=== PATIENT | male | born 1955 | race Caucasian/White ===

== ENCOUNTER 2025-01-04 15:19 | Inpatient (IN) | payer BC, SELFPAY ==
[2025-01-04] VITALS (10 sets, daily range): BP systolic 110–141; BP diastolic 62–90; BMI 28.8; BMI 28.4
[2025-01-04 13:02] LABS: % Basophils 0.7 % (0-2); % Eosinophils 0.5 % (0-6); % Immature Granulocytes 0.3 % (0-0.5); % Lymphocytes 29.2 % (20.5-51.1); % Monocytes 8.1 % (1.7-9.3); % Neutrophils 61.2 % (42.2-75.2); Absolute Basophils 0.1 10^3/uL (0-0.2); Absolute Lymphocytes 2.5 10^3/uL (1.2-3.4); Absolute Monocytes 0.7 10^3/uL (0.1-0.6); Absolute Neutrophils 5.3 10^3/uL (1.4-6.5); Hematocrit 45.2 % (39.0-52.0); Hemoglobin 16.3 g/dL (13.0-18.0); Mean Corp Hgb Conc. 36.1 g/dL (33.0-37.0); Mean Corpuscular Volume 88.8 fL (80.0-94.0); Mean Platelet Volume 10.8 fL (7.4-10.4); Nucleated Red Blood Cells % 0 % (-); Platelet Count 199 10^3/uL (130-400); Red Blood Cell Count 5.09 10^6/uL (4.70-6.10); Red Cell Dist. Width 12.6 % (11.5-14.5); White Blood Cell Count 8.6 10^3/uL (4.8-10.8)
[2025-01-04 13:15] LABS: ALT (SGPT) 29 U/L (0-50); AST (SGOT) 50 U/L (17-59); Albumin 5.3 g/dl (3.5-5.0); Alkaline Phosphatase 42 U/L (38-126); Blood Urea Nitrogen 14 mg/dl (9-20); Carbon Dioxide 28 mmol/L (22-30); Chloride 103 mmol/L (98-107); Glucose 113 mg/dl (70-99); Potassium 5.2 mmol/L (3.5-5.1); Sodium 142 mmol/L (135-145); Total Bilirubin 1.8 mg/dl (0.2-1.3); eGFR > 60.00
--- NOTE | 2025-01-04 13:44 | ED.GENMED ---
History of Present Illness
General
Chief Complaint: Chest Pain
Source: patient
Exam Limitations: none
Time Seen by Provider: 01/04/25 13:09
Nursing documentation reviewed up to this point in time: agreed with
History of Present Illness
History of Present Illness:
Patient is a 6-year-old male with past medical history of cardiac stent who presents to the ER for evaluation of chest pain. Patient reports he has had intermittent episodes of chest pain which have lasted for about 5 minutes at a time. He reports
chest pain is usually across anterior upper chest and last for 5 minutes at a time. With his episodes of chest pain he has had no associated shortness of breath, radiation, nausea or vomiting. Symptoms occur either with rest or with exertion. He
reports his last episode chest pain was last night while sitting in a meeting approximate 10 PM. It lasted about 5-10 minutes. He has not had pain since. Patient presents asymptomatic. He did take his 1 baby aspirin today.
Patient is followed by Dr. AISHWARYA Davey
Review of Systems
Review of Systems
Allergies reviewed?: Yes
All Other Systems: ROS reviewed and negative except as documented in HPI and ROS
Constitutional: Reports no symptoms
Respiratory: Reports no symptoms
Cardiac: Reports chest pain; Denies diaphoresis, palpitations or syncope
ABD/GI: Reports no symptoms
: Reports no symptoms
Musculoskeletal: Reports no symptoms
Skin: Reports no symptoms
Neurological: Reports no symptoms
Psychiatric: Reports no symptoms
Phy Exam
General Physical Exam
General Presentation: no apparent distress
General age: appears stated age
General Skin: warm and dry
General Habitus: normal
General Mental: alert
General Hydration: appears well hydrated
Cardiovascular Exam
Cardiovascular Exam: regular rate/rhythm, no murmur and normal peripheral pulses
Pulmonary Exam
Pulmonary Exam: lungs clear and no respiratory distress
Neurological Exam
Neurological Exam: alert and oriented x3
Musculoskeletal Exam
Musculoskeletal Exam: full ROM
Skin Exam
Skin Exam: normal color and warm/dry
Psychiatric Exam
Psychiatric Exam: normal mood/affect
Scores
Heart Score for Chest Pain Patients
STEMI patient?: Not applicable
Course
Orders/Labs/Results
Orders:
Orders
01/04/25 12:33
EKG [Electrocardiogram (*1)] Urgent
Reason for Study: Chest Pain
01/04/25 12:34
EKG- Treatment ONCE
01/04/25 12:48
Complete Blood Count/With Diff Urgent
Comprehensive Metabolic Panel Urgent
Troponin I Urgent
01/04/25 13:44
Aspirin Chewable [Low Strength Aspirin] 243 mg PO NOW STA
01/04/25 13:49
Heparin 4,000 units IV NOW STA
Nursing to Place Non Medication Order As Directed
Physician Order: PTT 6 hours after initial start of Heparin infusion
Above order entered?: Yes
01/04/25 13:57
PTT Urgent
Comment: Obtain baseline before beginning heparin infusion if not already collected
01/04/25 14:00
Heparin 38394 Units/250 ml 25,000 units in 250 ml IV PER PROTOCOL
Weight to be used for heparin protocol in kilograms (kg):: 91.2
Protocol:: Cardiac Tx/Acute Coronary
PTT Goal Range to be used:: PTT 73 to 111 seconds
Order type:: Initial
INITIAL Infusion Dose (UNITS/KG/hr) & then follow protocol:: 12 units/kg/hr
Infusion Dose in UNITS/hr & then follow protocol (UNITS/hr):: 1,000
INFUSION RATE in mL/hr & then follow protocol (mL/hr):: 10
PTT less than or equal to 64 seconds:: Increase rate by 200 units/hr (+ 2 mL/hr)
PTT 64.1 to 72.9 seconds:: Increase rate by 100 units/hr (+ 1 mL/hr)
PTT 73 to 111 seconds:: Target Range. No change in rate.
PTT 111.1 to 130.9 seconds:: Decrease rate by 100 units/hr (- 1 mL/hr)
PTT 131 to 199.9 seconds:: HOLD for 1 hr. Then decrease rate by 200 units/hr (- 2 mL/hr)
PTT greater than or equal to 200 seconds:: HOLD for 2 hrs & Notify Provider. Then decrease by 200 units/hr (-
2 mL/hr)
Lab follow-up:: Each change, PTT q6h until 2 consecutive are therapeutic. Then PTT
daily.
01/04/25 15:07
Admit/Transfer Patient As Directed
Co-Sign Provider:
Level of Care: Inpatient admission
Assign to:: IVU
Physician / Group: Elva
Diagnosis: NSTEMI
Reason for Hospitalization: NSTEMI, IV heparin, cardiac cath
Expected length of stay greater than two midnights?: Yes
ELOS- Estimated Length of Stay in days: 3
I certify the patient meets the requirements for IP care: Yes
PRN Pain Medication Management As Directed
May give lesser potent ordered pain med per pt: Yes
preference::
Protocol:: Medication orders for pain may be administered in a
manner that supports deferring to patient preference
when the pt is:
- Requesting an ordered lesser potent pain medication.
Least to most potent pain medications are defined
as: acetaminophen < NSAID < tramadol < opioids
(morphine, oxycodone, hydromorphone).
- Requesting a lesser dose of the same medication IF
ORDERED.
- Requesting a less intrusive route of administration
if both routes are prescribed by the provider (PO <
IV).
01/04/25 15:09
Code Status As Directed
Resuscitation Status: Full Code
01/04/25 20:09
PTT Urgent
Abnormal Lab Results
01/04/25
12:48
MCH 32.0 H pg
(27.0-31.0)
MPV 10.8 H fL
(7.4-10.4)
Absolute Monos (auto) 0.7 H 10^3/uL
(0.1-0.6)
Potassium 5.2 H mmol/L
(3.5-5.1)
Glucose 113 H mg/dl
(70-99)
Total Bilirubin 1.8 H mg/dl
(0.2-1.3)
Troponin I 4.210 H* ng/ml
Albumin 5.3 H g/dl
(3.5-5.0)
01/04/25 12:48
01/04/25 12:48
Vital Signs
Initial and Last Documented VS:
Initial Vital Signs
Pulse Resp Pulse Ox
87 16 98
01/04/25 12:35 01/04/25 12:35 01/04/25 12:35
Last Documented Vital Signs
Temp Pulse Resp BP Pulse Ox
98.8 F 69 20 124/80 95
01/04/25 12:39 01/04/25 15:45 01/04/25 15:45 01/04/25 15:00 01/04/25 15:45
Face Man consulted with Physician
Face Man consulted with physician?: Yes
Name of Physician Consulted: Jesus
MDM/Problems Addressed
Differential Diagnosis Includes:
Not limited to ACS
MDM/Problems Addressed:
As documented patient is a 69-year-old male who presented with intermittent episodes of chest pain for the past week.. Patient's last episode of chest pain was last evening. He has been asymptomatic here in the ER. No acute findings on EKG
cardiac troponin however elevated at 4.210. Pt took one baby ASA this am.
Patient was additional 3 aspirin and placed on heparin. Case reviewed with ED physician. Case discussed with cardiology, Dr. Marquez. Cardiology evaluated pt and pt to be admittted to cardiology. plan for cardiac cath in am. Patient has
remained asymptomatic and stable in the ER.
*Critical Care Note
Total Time (30-74mins, 75-104mins- exclusive of procedures): Not Applicable
ED Attending Note
-
Portions of this chart may have been created with voice recognition software.� Occasional wrong word or��sound alike� substitutions may have occurred due to the inherent limitations of voice recognition software.
Discharge Plan
Departure
Patient Disposition: Admit
Admit to: Telemetry
Admit to doctor: Alma
Presentation/result/management discussed w/ accepting MD/DO: cardiology
Patient with high blood pressure during this ER visit?: Yes
Covid-19: Not Applicable
Discharge Problem:
Acute non-ST elevation myocardial infarction (NSTEMI)
Interventions
Interventions:
*Risk Screen - Suicide Last Done: 01/04/25 13:51
*General Assessment Last Done: 01/04/25 13:51
*Neglect/Abuse Screening Last Done: 01/04/25 13:51
*ED- Fall Risk Assessment Last Done: 01/04/25 13:51
*ED COVID-19 Vaccine History Last Done: 01/04/25 13:51
ED- Cardiac Assessment Last Done: 01/04/25 13:51
[2025-01-04] MEDS: LOW STRENGTH ASPIRIN 243 MG PO (13:59)
[2025-01-04] MEDS: HEPARIN 4000 UNITS IV (14:07)
[2025-01-04] MEDS: HEPARIN 25000 UNITS/250 ML IV (14:09)
[2025-01-04 14:28] LABS: APTT 33.1 Sec (23.4-35.0)
--- NOTE | 2025-01-04 14:50 | CON.CAR ---
Addendum entered and electronically signed by Mp Stevenson MD 01/04/25 15:52:
I saw and examined the patient.
The Civil Preparedness Officer's note was reviewed and I agree with the note.
Comment: Briefly, 69-year-old man past medical history of CAD with prior drug-eluting stent in the left circumflex who presents for evaluation after approximately 10 days of intermittent chest tightness. ECG here showed sinus rhythm with
nonspecific ST changes. Initial troponin was found to be elevated at 4.2 consistent with NSTEMI.
Patient was chest pain-free at the time of my evaluation
No evidence of decompensated heart failure based on physical exam
Agree with aspirin, high intensity statin and heparin drip x 48 hours
Start low-dose metoprolol
If he develops recurrent chest discomfort would start nitro drip
Trend troponin to peak
Check echo
N.p.o. at midnight for left heart catheterization tomorrow
Case discussed with interventional cardiology
Original Note:
Consultation
Consultation Request
Date/Time Consultation Performed: 01/04/25
Requesting Provider: Minna Chung PA-C
Performing Provider: Jessica Cruz PA-C for Dr. Stevenson
Reason for Consultation: CP
Medical History
-
Chief Complaint: CP
History of Present Illness:
Patient is a 69-year-old male with past medical history of CAD status post mid circumflex SETH 09/2017, hypertension, hyperlipidemia who presents to [facility] due to chest pain. 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 He reports he noted some upper chest tightness at that time. He reports since then he has noticed several episodes of recurrent upper chest tightness, 1 of which with walking his dog, but several wall resting. He reports
the last episode was last evening around 10 PM while he was at a [facility] meeting which he does state was stressful. Due to recurrence of symptoms his urged him to come in for evaluation. In the setting of his prior stent, he did not have any
symptoms by his report. He does not have any present discomfort. Troponin 4.2 resulting in cardiology consultation. He is on aspirin 81 mg daily and has been compliant with this.
PMH:
CAD s/p mid circ SETH 09/2017
HTN
HLD
Back pain
Past Medical History
Past Medical History: Other (in HPI)
Social History
Tobacco: Non-Smoker
Alcohol: None
Personal:
Living: With Family
Family History
Family History: Adopted
Allergies / Home Medications
Allergy/AdvReac Type Severity Reaction Status Date / Time
No Known Allergies Allergy Verified 01/04/25 13:56
�Medication �Instructions �Recorded �Confirmed �Type
aspirin 81 mg tablet,delayed 81 mg PO DAILY 01/04/25 01/04/25 History
release
losartan 25 mg tablet 25 mg PO DAILY 01/04/25 01/04/25 History
rosuvastatin 40 mg tablet (Crestor) 40 mg PO DAILY 01/04/25 01/04/25 History
saw palmetto 160 mg capsule 160 mg PO DAILY 01/04/25 01/04/25 History
therapeutic multivitamin 1 tab PO DAILY 01/04/25 01/04/25 History
Review of Systems
-
History Source: Patient
All other systems: Negative unless noted
Physical Exam
Vital Signs
Temp Pulse Resp BP Pulse Ox
98.8 F 87 16 141/90 98
01/04/25 12:39 01/04/25 12:35 01/04/25 12:35 01/04/25 12:39 01/04/25 13:51
Lab Results
01/04/25 12:48
01/04/25 12:48
Troponin I 4.210 ng/ml H* 01/04/25 12:48
Physical Exam
General: No Apparent Distress and Comfortable
HEENT: Normocephalic, Anicteric and Moist Mucous Membranes
Respiratory: Clear and Non Labored Respirations
Cardiac: S1/S2, Regular Rhythm and Murmur
GI: Soft, Non Tender, Non Distended and Normal Bowel Sounds
Musculoskeletal: No Clubbing, No Cyanosis and No Edema
Skin: Warm and Dry
Neuro: AO x 3
Impression / Plan
-
Primary Ship Scraper: Dr. AISHWARYA Davey
Assessment:
Presentation with CP
NSTEMI
CAD s/p mid circ SETH 09/2017
HTN
HLD
Back pain
ECHO 2017: normal
Stress echo 11/2017: Negative for ischemia with normal EF, suboptimal evaluation, inferior segment/translational motion with no clear stress-induced ischemia
Plan:
- Patient with history of CAD with prior circumflex stent in 2018 presents with chest tightness, intermittent since last Thursday12/26/24.
- Trop on arrival 4.2, trend to peak. Chest pain-free. EKG sinus rhythm with septal ST depressions noted
- Continue IV heparin started in ER
- Continue aspirin 81mg daily. 324mg total given in ER
- Continue outpatient Crestor. Check CVE
- Check echo
- N.p.o. after midnight for cardiac catheterization in a.m. discussed cath procedure with patient.
- Blood pressures stable. Continue outpatient losartan. Will add Toprol 25 mg daily
- Further recommendations pending results of testing
Data Reviewed
-
EKG: Tracing Personally Visualized and interpreted
Medical Tests (Nuc Med, Echo etc): Report Reviewed by me
Labs: Labs Reviewed by me
Old Records: Reviewed
[2025-01-04 21:26] LABS: APTT 49.7 Sec (23.4-35.0)
[2025-01-04] MEDS: TOPROL XL 25 MG PO (22:39)
[2025-01-05] VITALS (15 sets, daily range): BP systolic 100–122; BP diastolic 60–79; BMI 28.4
--- NOTE | 2025-01-05 00:33 | PTCARENOTE ---
Rec'd pt as admission from ED. Pt AAO*3, VSS, and SR on TELE monitor. Pt denies any active CP or discomfort. Heparin infusing as ordered. Pt given education on EKG and troponin monitoring and verbalizes understanding. Pt NPO at midnight for
possible procedure in AM. PT now resting with call funk in reach and plan of care ongoing. See MAR and flowchart for full pt care and assessment.
[2025-01-05 04:18] LABS: Hemoglobin 14.8 g/dL (13.0-18.0); Mean Corp Hgb Conc. 36.1 g/dL (33.0-37.0); Mean Corpuscular Volume 88.7 fL (80.0-94.0); Mean Platelet Volume 11.1 fL (7.4-10.4); Platelet Count 178 10^3/uL (130-400); Red Blood Cell Count 4.62 10^6/uL (4.70-6.10); Red Cell Dist. Width 12.5 % (11.5-14.5); White Blood Cell Count 8.6 10^3/uL (4.8-10.8)
[2025-01-05 04:35] LABS: APTT 70.4 Sec (23.4-35.0)
[2025-01-05 04:44] LABS: Blood Urea Nitrogen 17 mg/dl (9-20); Calcium 9.1 mg/dl (8.4-10.2); Carbon Dioxide 22 mmol/L (22-30); Chloride 105 mmol/L (98-107); Estimated Creatinine Clearance 101 ml/min; Glucose 103 mg/dl (70-99); HDL Cholesterol 42 mg/dl; LDL Cholesterol, Calculated 54 mg/dl; Potassium 4.1 mmol/L (3.5-5.1); Sodium 140 mmol/L (135-145); Total Cholesterol 118 mg/dl (50-199); Triglyceride 113 mg/dl (10-149); Very Low Density Lipoprotein 22 mg/dl (0-30); eGFR > 60.00
[2025-01-05] MEDS: ASPIR LOW (ENTERIC COATED) 81 MG PO (07:00)
[2025-01-05] MEDS: TOPROL XL 25 MG PO (07:01)
[2025-01-05] MEDS: COZAAR 25 MG PO (07:01)
[2025-01-05] MEDS: THERAGRAN 1 TABLET PO (07:01)
[2025-01-05] MEDS: CRESTOR 40 MG PO (07:06)
--- NOTE | 2025-01-05 07:51 | ITS.CL.CATH ---
Fitness And Wellness Director - Catheterization
Cardiac Catheterization
Procedure Report:
LEFT HEART CATHETERIZATION
Date of Procedure: January 05, 2025
Referring: Mp Stevenson MD, PhD
PROCEDURES:
1. Left heart catheterization, coronary angiogram.
2. Moderate sedation.
3. Functional physiologic testing of mid LAD
INDICATION: Patient is a 69-year-old gentleman with past medical history of hypertension, hyperlipidemia, nondiabetic, coronary artery disease with prior left circumflex stent who presents this admission with NSTEMI, peak troponin of 4.
Echocardiogram is pending. He is now referred for left heart catheterization to rule out obstructive CAD.
ACCESS: Right radial artery, 6Fr sheath, under US guidance
HEMODYNAMICS : (mmHg)
AO (s/d) : 92/57
LVEDP : 6
No significant gradient across the aortic valve to suggest aortic stenosis.
CORONARY FINDINGS
Dominance: Right
Left Main Trunk (LMT):� Large caliber vessel that gives rise to the LAD and LCx branches and is free of angiographic disease.
Left Anterior Descending Artery (LAD):� Large caliber vessel that gives off 2 major diagonal branches as it courses along the anterior inter-ventricular groove before wrapping around the cardiac apex. Mid LAD has a heavily calcified 70% stenosis
which is IFR positive as noted below at 0.87.
Left Circumflex Artery (LCx):� Large caliber vessel that gives off 2 major obtuse marginal (OM) branches as it courses along the atrio-ventricular (AV) groove.� There is a hazy, irregular 90 to 95% proximal left circumflex stenosis which is likely
culprit of presenting NSTEMI. Previously placed distal left circumflex/OM 2 stent is widely patent. Mid left circumflex at the level of OM1 takeoff has a smooth 40 to 50% stenosis. OM1 and OM 2 appear to be good bypass targets.
Right Coronary Artery (RCA):� Large caliber dominant vessel that gives rise to the posterior descending artery (RPDA) and very small postero-lateral ventricular (RPLV) branches distally.� It is moderately calcified with a 60 to 70% stenosis in the
proximal portion with diffuse atherosclerotic plaque in the mid RCA up to 75%.
HEMODYNAMIC ASSESSMENT OF THE MID LAD WITH A VOLCANO OMNI WIRE: The origin of the left coronary artery was cannulated with a 6 Fr EBU 3.75 guide catheter. Intravenous heparin was administered and the ACT was followed during the procedure. Two
hundred micrograms of intracoronary nitroglycerin was given through the guide catheter. A [place] Omni wire was advanced to the guide catheter tip and normalized just outside the guide catheter. The Omni wire was then carefully manipulated across
the stenosis in the mid LAD with the iFR below the ischemic threshold serially measuring 0.87, 0.88, 0.88. The Omni wire was then pulled back to the guide catheter where the Pd/Pa measured 1.0 confirming no baseline drift in pressure readings
SEDATION: 47 minutes of procedural sedation was utilized. IV Midazolam and IV Fentanyl were administered. An independent biomedical specialist was present to assist with and help manage the patient's level of consciousness and physiologic status.
RADIATION SUMMARY: Fluoro Time (min): 5.6, Dose (mGy): 438.9, DAP (Gy.cm2) : 27.0
Closure Device: There were no immediate intra-procedural complications.� The sheath was pulled in the director of labor and delivery and a vascular-band applied to the right wrist for radial artery hemostasis using the patent hemostasis technique.�
CONCLUSIONS
1. Multivessel coronary artery disease with moderately calcified coronary arteries.
2. Low to normal LVEDP at 6 mmHg.
RECOMMENDATIONS
1. Wean radial band per protocol. Monitor right hand perfusion and for bleeding from the radial site following removal of the vascular-band following trans-radial access.
2. Continue aggressive medical therapy and risk factor modification for secondary CAD prevention.
3. Continue ASA 81 mg daily for life.
4. Consult CT surgery for consideration of coronary artery bypass grafting with bypass grafts to LAD +/- D1, OM1/OM 2, RPDA
5. Hydrate with normal saline to mitigate the risk of contrast-induced acute kidney injury.
6. Eventual follow-up with Dr. Michael Davey.
7. Eventual referral for outpatient cardiac rehab.
Copy to: Mp Stevenson MD, PhD, Michael Davey MD
Maggi June MD, [facility], [facility]
[2025-01-05] MEDS: NSS 1000 IV (09:30)
--- NOTE | 2025-01-05 11:15 | PTCARENOTE ---
Pt received this am with no c/o of chest pain or sob. Pt sent to the animal laboratory helper and returned at 0900. Right radial band intact and WNL. Room air, sat 99%.
--- NOTE | 2025-01-05 12:46 | CONSULT.CT ---
Consultation
-
Date/Time Consultation Requested: 01/05/25
Date/Time Consultation Performed: 01/05/25
Requesting Provider: Fredy June
Performing Provider: Adenike JOHNSON for Abelardo Hernandez MD
Reason for Consultation: CABG evaluation
Patient History
Physicians
Family Physician: Kyle Rodriguez
Outpatient Public Health Microbiologist: AISHWARYA Davey
Inpatient Public Health Microbiologist: [facility]
History of Present Illness
69-year-old [id number], male, followed by Dr. Cornelio Davey for known coronary artery disease and prior stent to LCx in 2017, began experiencing upper chest tightness 10 days ago (12/26) that resolved spontaneously. Similar symptoms
recurred again several days later and again on 01/04/2025, prompting patient to seek treatment at [facility] emergency room. ECG with nonspecific ST changes. Initial troponin elevated at 4.2, consistent with NSTEMI. Patient underwent left heart
catheterization today which revealed triple-vessel coronary disease.
Pertinent negatives: Denies CVA/TIA, DM, asthma/COPD, dysphagia, GERD, DVT/PE, chest radiation, vein stripping
Past Medical History
Past Medical History: CAD, HTN, Hypercholesterolemia and Other (Left hand cellulitis)
Past Surgical History
Past Surgical History: PCI/Stent (SETH-LCx 2017) and Other (Left hand surgery for abscess)
Social History
Alcohol: Occasional (2/month)
Drug: None
Tobacco: Non-Smoker
Personal:
Living: With Spouse
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
Allergies
Allergy/AdvReac Type Severity Reaction Status Date / Time
No Known Allergies Allergy Verified 01/04/25 13:56
Home Medications
�Medication �Instructions �Recorded �Confirmed �Type
aspirin 81 mg tablet,delayed 81 mg PO DAILY Blood Clot 01/04/25 01/04/25 History
release Prevention/Tx
losartan 25 mg tablet 25 mg PO DAILY Blood Pressure 01/04/25 01/04/25 History
rosuvastatin 40 mg tablet (Crestor) 40 mg PO DAILY High Cholesterol 01/04/25 01/04/25 History
saw palmetto 160 mg capsule 160 mg PO DAILY 01/04/25 01/04/25 History
therapeutic multivitamin 1 tab PO DAILY Supplement 01/04/25 01/04/25 History
Review of Systems
-
History Source: Patient
General: Reports No Symptoms
HEENT: Reports No Symptoms
Respiratory: Reports No Symptoms
Cardiac: Reports Chest Pain (upper chest tightness resolved on admission)
Abdomen/GI: Reports No Symptoms
: Reports No Symptoms
Musculoskeletal: Reports No Symptoms
Skin: Reports No Symptoms
Neurological: Reports No Symptoms
Vascular: Reports No Symptoms
Physical Exam
Vital Signs
Temp 98.1 F 01/05/25 11:38
Temp route: Oral 01/05/25 11:38
Pulse 73 01/05/25 11:00
Rhythm: Normal sinus rhythm 01/05/25 08:00
Resp Rate 14 01/05/25 11:38
Blood pressure 121/79 01/05/25 11:00
Blood pressure extremity used: Left upper arm 01/05/25 08:55
Position: Lying 01/05/25 08:55
MAP (cuff-Giulia Monitor) 92 01/05/25 11:00
SaO2 95 01/05/25 11:38
Oxygen Mode of Delivery Room air 01/05/25 11:38
Can the patient verbally communicate their pain? Yes 01/05/25 08:00
Actual Weight 89.7 kg 01/05/25 06:00
Body Mass Index (BMI) 28.4 01/05/25 06:00
Labs
01/05/25 03:17
01/05/25 03:17
APTT 70.4 Sec (23.4-35.0) H 01/05/25 03:17
Hemoglobin A1c Cancelled 01/04/25 20:47
Troponin I 3.900 ng/ml H* 01/05/25 03:17
Diagnostic Studies
Left heart Catheterization 01/05/25:
Left Main Trunk:� ok
Left Anterior Descending Artery (LAD):� Mid LAD has a heavily calcified 70% stenosis which is IFR positive as noted below at 0.87.
Left Circumflex Artery (LCx):� Hazy, irregular 90-95% proximal left circumflex stenosis which is likely culprit of presenting NSTEMI. Previously placed distal left circumflex/OM 2 stent is widely patent. Mid left circumflex at the level of OM1
takeoff has a smooth 40-50% stenosis.
Right Coronary Artery (RCA):� Moderately calcified 60-70% stenosis in the proximal portion with diffuse atherosclerotic plaque in the mid RCA up to 75%.
Exam
General: Well Developed, Well Nourished and No Apparent Distress
HEENT: Normocephalic, Anicteric and PERRLA
Neck: Trachea Midline
Respiratory: Clear
Cardiac: S1/S2 and Regular Rhythm
GI: Soft, Non Tender, Non Distended and Normal Bowel Sounds
Rectal: Deferred by Provider
Skin: Warm and Dry
Neuro: AO x 3, No Motor Deficits and Nonfocal/Grossly Intact
Extremities: Pulses (+2/4 DP pulses)
Lymph: No Lymphadenopathy
Psych: Calm
Assessment / Plan
-
69-year-old male admitted with NSTEMI and found to have triple-vessel coronary disease on cath 01/05/25
- troponin trend 4.21>4.020>4.310>3.9
- Surgeon to review imaging discussed risk/benefit of CABG with patient and family
- Preop diagnostics ordered
- Continue IV heparin
- Need to DC Cozaar 2 days prior to surgery if deemed a surgical candidate
Data Reviewed
-
EKG: Report Reviewed by me and Discussed with Physician
Operating Cost Clerk: Report Reviewed by me and Discussed with Physician
Radiology: Report Reviewed by me and Discussed with Physician
Labs: Labs Reviewed by me and Discussed with Physician
Old Records: Reviewed
--- NOTE | 2025-01-05 12:49 | CM ---
Chart reviewed. Patient is independent of ADLS, lives with his in a 2 [address], 1 [employer], 0 DME. Plan is for the patient to return home. CM to follow
[2025-01-05] MEDS: HEPARIN 25000 UNITS/250 ML IV ×2 (15:47→18:57)
[2025-01-05 16:37] LABS: APTT 37.6 Sec (23.4-35.0)
--- NOTE | 2025-01-05 21:10 | PTCARENOTE ---
Assumed care of pt at 1900. Pt is A/O x4, pleasant and cooperative with care. No c/o pain. Ambulates independently around room. Received pt on heparin drip at 1000 units/hr, next PTT at 2145. R radial dressing is C/D/I, 2+ right radial pulse, see
post cath flowsheet for further details. Physical assessment as documented in nursing shift assessment flowsheet. SR on monitor. Call funk and personal items within reach.
[2025-01-05 22:07] LABS: APTT 52.8 Sec (23.4-35.0)
[2025-01-06 03:41] VITALS: BP 112/78
[2025-01-06 05:36] LABS: Hematocrit 40.2 % (39.0-52.0); Hemoglobin 14.5 g/dL (13.0-18.0); Mean Corp Hgb Conc. 36.1 g/dL (33.0-37.0); Mean Corpuscular Volume 88.7 fL (80.0-94.0); Mean Platelet Volume 11.1 fL (7.4-10.4); Platelet Count 167 10^3/uL (130-400); Red Blood Cell Count 4.53 10^6/uL (4.70-6.10); Red Cell Dist. Width 12.7 % (11.5-14.5); White Blood Cell Count 7.9 10^3/uL (4.8-10.8)
[2025-01-06 05:44] LABS: APTT 81.4 Sec (23.4-35.0)
[2025-01-06 06:03] LABS: B.E. 2.3 mmol/L; HCO3 26.5 mmol/L (21-28); O2 Saturation % 96.2 % (94-98); PCO2 39 mmHg (35-48); PO2 71 mmHg (83-108); pH 7.44 (7.35-7.45)
[2025-01-06 06:23] LABS: Blood Urea Nitrogen 14 mg/dl (9-20); Calcium 9.1 mg/dl (8.4-10.2); Carbon Dioxide 24 mmol/L (22-30); Chloride 107 mmol/L (98-107); Estimated Creatinine Clearance 89 ml/min; Glucose 109 mg/dl (70-99); Potassium 4.5 mmol/L (3.5-5.1); Sodium 141 mmol/L (135-145); eGFR > 60.00
[2025-01-06 08:06] VITALS: BP 108/69
[2025-01-06] MEDS: COZAAR 25 MG PO (09:24)
[2025-01-06] MEDS: CRESTOR 40 MG PO (09:24)
[2025-01-06] MEDS: THERAGRAN 1 TABLET PO (09:24)
[2025-01-06] MEDS: TOPROL XL 25 MG PO (09:24)
[2025-01-06] MEDS: ASPIR LOW (ENTERIC COATED) 81 MG PO (09:24)
--- NOTE | 2025-01-06 09:36 | W.PN.CARDCBS ---
Addendum entered and electronically signed by Lesley Morin DO 01/06/25 10:07:
I saw and examined the patient.
The Director Wholesale's note was reviewed and I agree with the note.
Comment: patient was seen and examined. at bedside. Fortunately no further chest pain or pressure. No shortness of breath. Overnight without events.
GEN: No distress, awake, alert, oriented x3
HEENT: mmm
LUNGS: CTA bilaterally, no wheezes/rales
CV: Reg, S1/S2, no murmur
ABD: soft, BS+, NT/ND
EXT: no edema. radial site intact
NEURO: Gross non-focal
Plan:
Non-STEMI with chest pain status post cardiac catheterization 01/05/2025 with multivessel coronary disease undergoing CABG evaluation with CT surgery
-Appreciate CT surgery consult
-Tentative plan for CABG 01/09/2025
-Continue IV heparin. Continue aspirin.
-Continue Crestor, LDL 54
-Hemoglobin A1c 5%
-Continue current medical therapy with goal normotension. For now we will continue Toprol and losartan however losartan will be held as of tomorrow in preparation for OR on Thursday
-Will follow with you
Original Note:
Today's Communication / Plan
-
CABG eval, tentatively scheduled for Tuesday 01/09
Chest pain-free on aspirin, IV heparin, Crestor, Toprol
Impression / Plan
-
Primary Master Carpenter: Dr. AISHWARYA Davey
Assessment:
Presentation with CP
NSTEMI
MV CAD by cath 01/05/25
CAD s/p mid circ SETH 09/2017
HTN
HLD
Back pain
ECHO 2017: normal
Stress echo 11/2017: Negative for ischemia with normal EF, suboptimal evaluation, inferior segment/translational motion with no clear stress-induced ischemia
Echo 01/05/2025: EF 50 to 55%, inferoseptal and inferolateral hypokinesis, mild concentric LVH, mild MR, mild AR, mild TR, PAP 19 mmHg
Plan:
- Patient with history of CAD with prior circumflex stent in 2018 presents with chest tightness
- Ruled in for NSTEMI with peak troponin of 4.3
- Echo with preserved EF but with inferoseptal and inferolateral hypokinesis
- Cardiac catheterization 01/05/2025 with multivessel CAD.
- Carotid ultrasound with less than 50% stenosis noted bilaterally
- CT surgery consulted and patient tentatively planned for CABG on 01/09/2025
- Chest pain-free on aspirin, IV heparin
- LDL 54. Continue Crestor
- Continue Toprol, losartan. Will place losartan as on hold as of tomorrow morning in preparation for OR
- Will follow
Progress Note - Master Carpenter
Subjective
Date of Service: January 06, 2025
No issues overnight. Chest pain-free
Objective
Labs:
01/06/25 05:20
01/06/25 05:20
Labs
Hgb 14.5 g/dL (13.0-18.0) 01/06/25 05:20
Hct 40.2 % (39.0-52.0) 01/06/25 05:20
Plt Count 167 10^3/uL (130-400) 01/06/25 05:20
APTT 81.4 Sec (23.4-35.0) H 01/06/25 05:20
Sodium 141 mmol/L (135-145) 01/06/25 05:20
Potassium 4.5 mmol/L (3.5-5.1) 01/06/25 05:20
BUN 14 mg/dl (9-20) 01/06/25 05:20
Creatinine 0.8 mg/dL (0.7-1.3) 01/06/25 05:20
Glucose 109 mg/dl (70-99) H 01/06/25 05:20
Troponins
01/04/25 01/04/25 01/04/25
12:48 20:47 23:48
Troponin I 4.210 H* 4.020 H* 4.310 H*
01/05/25
03:17
Troponin I 3.900 H*
Vital Signs and I&O:
Vital Signs
Temp Pulse Resp BP Pulse Ox
98.4 F 68 18 108/69 95
01/06/25 08:07 01/06/25 09:24 01/06/25 08:07 01/06/25 09:24 01/06/25 08:07
Vital Signs
Temp Pulse Resp BP Pulse Ox
98.4 F 68 18 108/69 95
01/06/25 08:07 01/06/25 09:24 01/06/25 08:07 01/06/25 09:24 01/06/25 08:07
Intake & Output
01/04/25 01/05/25 01/06/25 01/07/25
07:59 07:59 07:59 07:59
Intake Total 52 / 52
Output Total 875 / 875 425 / 425
Balance -875 / -875 -373 / -373
Physical Exam
Physical Exam
GEN: No distress, awake, alert, oriented x3
HEENT: supple, anicteric, mmm, EOMI
LUNGS: CTA bilaterally, no wheezes/rales
CV: Reg, S1/S2, no murmur
ABD: soft, BS+, NT/ND
EXT: No cyanosis, clubbing, edema
NEURO: Gross non-focal
SKIN: Warm, pink, dry. No rash
[2025-01-06 11:42] VITALS: BP 106/63
[2025-01-06 12:22] LABS: INR 1.05
[2025-01-06 12:23] LABS: APTT 60.9 Sec (23.4-35.0)
--- NOTE | 2025-01-06 13:31 | W.PN.UPDATE ---
Update Note
Progress Note Update
STS RISK SCORE
Procedure Type:�Isolated CABG
Perioperative Outcome Estimate %
Operative Mortality 0.895%
Morbidity & Mortality 4.16%
Stroke 0.696%
Renal Failure 0.514%
Reoperation 1.93%
Prolonged Ventilation 2.22%
Deep Sternal Wound Infection 0.097%
Long Hospital Stay (>14 days) 2.15%
Short Hospital Stay (<6 days)* 62.2%
Clinical Summary
Planned Surgery: Isolated CABG, Urgent, First cardiovascular surgery
Demographics: 69 year old, male, 89.7kg, 178cm, BMI: 28.3 kg/m�
Lab Values: Creatinine: 0.8 mg/dL, Hematocrit: 40.2%, WBC Count: 7.9 10�/�L, Platelet Count: 036321 cells/�L
Substance Abuse: Never smoker, Alcohol use: <=1 drink/week
Cardiac Status: NYHA Class II, Ejection Fraction = 53%
Coronary Artery Disease: 3 vessels diseased, Non-ST Elevation NH, NH: 1 to 7 Days
Valve Disease: Trivial/Trace AR, Trivial/Trace MR, Trivial/Trace TR
Prev. Cardiac Interv: Previous PCI: Not during this episode of care
--- NOTE | 2025-01-06 14:26 | CM ---
Chart reviewed. Patient is independent of ADLS, lives with his in a 2 [address], 1 [place], 0 DME. Reviewed preoperative instructions and restrictions, along with showering instructions. Patient is agreeable to a visit by CT Transitional RN. Gave
patient a Cardiac Surgery Book. Plan is for the patient to return home with CT Transitional RN. CM to follow
[2025-01-06] MEDS: HEPARIN 25000 UNITS/250 ML IV (15:23)
--- NOTE | 2025-01-06 16:22 | PTCARENOTE ---
received patient this am, monitor shows NSR, VSS. IV heparin @ 1200units an hour,non therapeutic PTT so therefore increased IV heparin to 1400units/hr and will obtain another PTT as per protocol. patient c/o constipation Senokot po given as ordered.
U/S palmar arch being completed now. Dr. Hernandez was in room talking to patient and , they were very appreciative of him explaining [facility] procedure.
[2025-01-06 16:35] VITALS: BP 112/70
[2025-01-06] MEDS: SENOKOT-S 1 TABLET PO (17:39)
[2025-01-06 19:01] VITALS: BP 121/72
[2025-01-06 22:20] VITALS: BP 110/68
--- NOTE | 2025-01-07 00:51 | PTCARENOTE ---
Assumed care of pt at change of shift resting in bed. NSR on the monitor, HR in the 60's. Right radial site C,D,I. Positive pulses. No bleeding or hematoma. Denies pain or SOB. Heparin gtt infusing. Call funk within reach.
[2025-01-07 02:07] VITALS: BP 111/66
[2025-01-07 02:26] VITALS: BMI 27.9
[2025-01-07 02:49] LABS: APTT 68.8 Sec (23.4-35.0)
[2025-01-07 03:17] LABS: Blood Urea Nitrogen 13 mg/dl (9-20); Calcium 9.4 mg/dl (8.4-10.2); Carbon Dioxide 23 mmol/L (22-30); Chloride 106 mmol/L (98-107); Estimated Creatinine Clearance 101 ml/min; Glucose 106 mg/dl (70-99); Sodium 141 mmol/L (135-145); eGFR > 60.00
[2025-01-07 06:00] VITALS: BMI 27.9
[2025-01-07 07:26] VITALS: BP 134/86
--- NOTE | 2025-01-07 08:35 | W.PN.CARDCBS ---
Addendum entered and electronically signed by Trisha Hunter MD 01/07/25 11:58:
I saw and examined the patient.
The Coat Feller's note was reviewed and I agree with the note.
Comment: Exam stable. No angina overnight. He presented with non-Q wave myocardial infarction. He felt a little nauseous prior to breakfast but no other complaints. Feeling well now.
Continue current medical treatment. Heparin renewed.
Plan for CT surgery upcoming
Continue to monitor for symptoms.
Telemetry and labs independently reviewed by me and stable.
Given non-Q wave myocardial infarction postop in addition to aspirin would add back Plavix.
Continue to closely monitor.
Original Note:
Today's Communication / Plan
-
Continue IV heparin, aspirin
Pain free
Tentatively planned for CABG Tuesday 01/09
Impression / Plan
-
Primary Hogshead Filler: Dr. AISHWARYA Davey
Assessment:
Presented with CP
NSTEMI
CAD
s/p mid circ SETH 09/2017
MV CAD by cath 01/05/25
HTN
HLD
Back pain
Stress echo 11/2017: Negative for ischemia with normal EF, suboptimal evaluation, inferior segment/translational motion with no clear stress-induced ischemia
ECHO 2017: normal
Echo 01/05/2025: EF 50 to 55%, inferoseptal and inferolateral hypokinesis, mild concentric LVH, mild MR, mild AR, mild TR, PAP 19 mmHg
Plan:
-Presented with chest tightness. Ruled in for NSTEMI with troponin peaking at 4.3 and trending down thereafter.
-He has known history of CAD with prior circumflex stents in 2018. Cardiac catheterization 01/05/2025 revealed multivessel CAD.
-Tentatively plan for CABG 01/09/2025. CT surgery following.
-Remains chest pain-free on aspirin, IV heparin. Will continue.
-Echo 01/05/2025 showed EF 50 to 55% with inferoseptal and inferolateral hypokinesis as above.
-Continue Toprol. Losartan on hold in preparation for OR.
-Continue rosuvastatin. LDL 54
Progress Note - Hogshead Filler
Subjective
Date of Service: January 07, 2025
No complaints. Feeling well without recurrent chest pain.
Objective
Labs:
01/06/25 05:20
01/07/25 02:18
Labs
Hgb 14.5 g/dL (13.0-18.0) 01/06/25 05:20
Hct 40.2 % (39.0-52.0) 01/06/25 05:20
Plt Count 167 10^3/uL (130-400) 01/06/25 05:20
PT 14.0 Sec (11.4-14.6) 01/06/25 11:49
INR 1.05 01/06/25 11:49
APTT 68.8 Sec (23.4-35.0) H 01/07/25 02:18
Sodium 141 mmol/L (135-145) 01/07/25 02:18
Potassium 4.0 mmol/L (3.5-5.1) 01/07/25 02:18
BUN 13 mg/dl (9-20) 01/07/25 02:18
Creatinine 0.7 mg/dL (0.7-1.3) 01/07/25 02:18
Glucose 106 mg/dl (70-99) H 01/07/25 02:18
Troponins
01/04/25 01/04/25 01/04/25
12:48 20:47 23:48
Troponin I 4.210 H* 4.020 H* 4.310 H*
01/05/25
03:17
Troponin I 3.900 H*
Vital Signs and I&O:
Vital Signs
Temp Pulse Resp BP Pulse Ox
97.9 F 74 20 111/66 96
01/07/25 07:26 01/07/25 02:07 01/07/25 07:26 01/07/25 02:07 01/07/25 07:26
Vital Signs
Temp Pulse Resp BP Pulse Ox
97.9 F 74 20 111/66 96
01/07/25 07:26 01/07/25 02:07 01/07/25 07:26 01/07/25 02:07 01/07/25 07:26
Intake & Output
01/05/25 01/06/25 01/07/25 01/08/25
06:59 06:59 06:59 06:59
Intake Total 52 / 52 168 / 168
Output Total 875 / 875 425 / 425
Balance -875 / -875 -373 / -373 168 / 168
Physical Exam
Physical Exam
GEN: No distress, awake, alert, oriented x3
HEENT: supple, anicteric, mmm
LUNGS: CTA bilaterally, no wheezes/rales
CV: Reg, S1/S2, no murmur
EXT: No cyanosis, clubbing, edema
NEURO: Gross non-focal
SKIN: Warm, pink, dry. No rash
[2025-01-07] MEDS: TOPROL XL 25 MG PO (09:11)
[2025-01-07] MEDS: ASPIR LOW (ENTERIC COATED) 81 MG PO (09:11)
[2025-01-07] MEDS: CRESTOR 40 MG PO (09:11)
[2025-01-07] MEDS: THERAGRAN 1 TABLET PO (09:12)
[2025-01-07] MEDS: HEPARIN 25000 UNITS/250 ML IV (09:18)
--- NOTE | 2025-01-07 09:28 | PTCARENOTE ---
received patient this am, monitor shows NSR, VSS. IV heparin @ 1500units /hr via left ant. without difficulties. right radial dsg. intact, distal pulse palpable. patient voices no concerns at this time.
[2025-01-07 09:37] LABS: APTT 144.1 Sec (23.4-35.0)
--- NOTE | 2025-01-07 10:35 | PTCARENOTE ---
PTT 144.1, as per protocol will hold IV heparin, and decrease drip by 200units.
[2025-01-07 12:12] VITALS: BP 121/68
[2025-01-07 15:58] VITALS: BP 121/87
[2025-01-07 18:40] VITALS: BP 128/80
--- NOTE | 2025-01-07 19:59 | PTCARENOTE ---
Assumed care of patient at change of shift. Pt AAOx3, VSS, and sating 98% RA. Tele monitor shows NSR, see nursing shift assessment for further info. Right radial dressing intact w/ positive pulse. IV Heparin gtt currently infusing at 13ml/hr, next
ptt due at 00:30. Patient aware of POC, call funk within reach.
[2025-01-08] VITALS (8 sets, daily range): BP systolic 114–140; BP diastolic 67–84
[2025-01-08 01:01] LABS: APTT 93.3 Sec (23.4-35.0)
[2025-01-08] MEDS: HEPARIN 25000 UNITS/250 ML IV ×2 (04:12→23:19)
[2025-01-08 05:53] LABS: Hemoglobin 14.6 g/dL (13.0-18.0); Mean Corp Hgb Conc. 35.6 g/dL (33.0-37.0); Mean Corpuscular Hgb 31.4 pg (27.0-31.0); Mean Corpuscular Volume 88.2 fL (80.0-94.0); Mean Platelet Volume 11.1 fL (7.4-10.4); Platelet Count 172 10^3/uL (130-400); Red Blood Cell Count 4.65 10^6/uL (4.70-6.10); Red Cell Dist. Width 12.7 % (11.5-14.5); White Blood Cell Count 7.6 10^3/uL (4.8-10.8)
[2025-01-08 06:11] LABS: APTT 107.8 Sec (23.4-35.0)
[2025-01-08] MEDS: TOPROL XL 25 MG PO (08:03)
[2025-01-08] MEDS: THERAGRAN 1 TABLET PO (08:03)
[2025-01-08] MEDS: ASPIR LOW (ENTERIC COATED) 81 MG PO (08:03)
[2025-01-08] MEDS: CRESTOR 40 MG PO (08:03)
--- NOTE | 2025-01-08 10:34 | PTCARENOTE ---
Rec'd pt at handoff. Heparin gtt infusing at 13 ml/hr. Pt has no complaints CP/discomfort at this time. Plan of care reviewed w/ pt and verbalizes understanding.
--- NOTE | 2025-01-08 11:31 | W.PN.CARDCBS ---
Today's Communication / Plan
-
Await CABG
Heparin renewed
Guideline directed medical therapy
Discussed with patient and his at the bedside.
Impression / Plan
-
Primary Medical Administrative Specialist: Dr. AISHWARYA Davey
Assessment:
Presented with CP
NSTEMI
CAD
s/p mid circ SETH 09/2017
MV CAD by cath 01/05/25
HTN
HLD
Back pain
Stress echo 11/2017: Negative for ischemia with normal EF, suboptimal evaluation, inferior segment/translational motion with no clear stress-induced ischemia
ECHO 2017: normal
Echo 01/05/2025: EF 50 to 55%, inferoseptal and inferolateral hypokinesis, mild concentric LVH, mild MR, mild AR, mild TR, PAP 19 mmHg
Plan:
- Stable overnight with quick musculoskeletal total discomfort only. His is at the bedside. Presentation with angina and NSTEMI with troponin peaking at 4.3 and trending down thereafter.
Postop once hemostasis has been achieved in addition to aspirin would also start Plavix short-term.
-He has known history of CAD with prior circumflex stents in 2018. Cardiac catheterization 01/05/2025 revealed multivessel CAD.
-Tentatively plan for CABG 01/09/2025. CT surgery following.
-Remains chest pain-free on aspirin, IV heparin.
Continue heparin and will renew
-Continue Toprol. Losartan on hold in preparation for OR.
-Echo 01/05/2025 showed EF 50 to 55% with inferoseptal and inferolateral hypokinesis as above.
-Hyperlipidemia.
Continue rosuvastatin. LDL 54
- Telemetry independently reviewed by me and florencia. Labs independently reviewed by me and florencia.
-Carotid ultrasound 01/05/2025 soft plaque/mixed plaque noted no stenosis greater than 50%.
Progress Note - Medical Administrative Specialist
Subjective
Date of Service: January 08, 2025
Some musculoskeletal quick live chest pain. No angina. No palpitations.
Objective
Labs:
01/08/25 05:38
01/07/25 02:18
Labs
Hgb 14.6 g/dL (13.0-18.0) 01/08/25 05:38
Hct 41.0 % (39.0-52.0) 01/08/25 05:38
Plt Count 172 10^3/uL (130-400) 01/08/25 05:38
PT 14.0 Sec (11.4-14.6) 01/06/25 11:49
INR 1.05 01/06/25 11:49
APTT 107.8 Sec (23.4-35.0) H 01/08/25 05:38
Sodium 141 mmol/L (135-145) 01/07/25 02:18
Potassium 4.0 mmol/L (3.5-5.1) 01/07/25 02:18
BUN 13 mg/dl (9-20) 01/07/25 02:18
Creatinine 0.7 mg/dL (0.7-1.3) 01/07/25 02:18
Glucose 106 mg/dl (70-99) H 01/07/25 02:18
Vital Signs and I&O:
Vital Signs
Temp Pulse Resp BP Pulse Ox
98.0 F 66 16 119/77 97
01/08/25 11:10 01/08/25 11:09 01/08/25 11:10 01/08/25 11:09 01/08/25 11:10
Vital Signs
Temp Pulse Resp BP Pulse Ox
98.0 F 66 16 119/77 97
01/08/25 11:10 01/08/25 11:09 01/08/25 11:10 01/08/25 11:09 01/08/25 11:10
Intake & Output
01/06/25 01/07/25 01/08/25 01/09/25
06:59 06:59 06:59 06:59
Intake Total 52 / 52 168 / 168 576 / 576
Output Total 425 / 425
Balance -373 / -373 168 / 168 576 / 576
Physical Exam
Physical Exam
General: Well developed, well nourished in NAD.
Heart: Non displaced PMI, RRR, no murmurs, No S3, S4, no rubs.
Lungs: Clear to auscultation bilaterally, no wheeze, rhonchi, rubs bilaterally,
normal expiratory phase.
Extremities: No clubbing, cyanosis or edema bilaterally.
Neuro: Grossly nonfocal, awake, alert
--- NOTE | 2025-01-08 22:25 | PTCARENOTE ---
Rec'd pt at change of shift. VSS, SR on TELE monitor, and AAO*3. Pt denies any pain or discomfort. Heparin gtt infusing as ordered. Pt NPO at midnight. Pt hair clipped per CT OR guidelines. PT showered and bed lines changed. Pt verbalizes
understanding of care plan. Pt resting with call funk in reach and plan of care ongoing. See MAR and flowchart for full pt care/assessment.
[2025-01-09] VITALS (14 sets, daily range): BP systolic 87–140; BP diastolic 62–97; BMI 27.6
[2025-01-09 05:32] LABS: APTT 102.4 Sec (23.4-35.0)
[2025-01-09] MEDS: MAGNESIUM OXIDE 500 MG PO (05:59)
[2025-01-09] MEDS: PROTONIX 40 MG PO (05:59)
[2025-01-09] MEDS: LOPRESSOR 25 MG PO (06:00)
[2025-01-09] MEDS: BACTROBAN 2% OINTMENT 1 APPLIC NASAL ×2 (06:10→19:19)
--- NOTE | 2025-01-09 06:13 | W.CVOR.SURPR ---
CVOR Surgeon Immed Pre Op
-
CARDIAC SURGERY ATTENDING:
I have examined this patient prior to performance of the scheduled procedure.
The patient's condition is unchanged from the time of the dictated/written History and
Physical and the patient is able to undergo the scheduled procedure.
I have had numerous long conversations with this Michael Ramirez regarding his coronary pathology and the planned surgical interventions. I anticipate coronary artery bypass grafting x 4-5 with EILEEN to LAD, left radial artery to OM1/OM 2, GSV to
OM1/OM 2, GSV to RPDA, and possible GSV to D2 (will require intraoperative assessment). We reviewed the periprocedural risks (including, but not limited to, , stroke, AR, arrhythmia, PNA, MARCIA/F, bleeding, and infection), discussed the expected
in-hospital postprocedural course, and reviewed the expected outpatient recovery. All questions have been answered to the best of my abilities. The patient is agreeable to proceed. Informed consent was obtained.
Thank you for the opportunity participate the care of this kind gentleman.
Abelardo Hernandez MD
[phone]
--- NOTE | 2025-01-09 06:17 | PTCARENOTE ---
Second surgical prep complete. CHG shower. Linens changed. Morning medications given. Pt resting at bedside with spouse with call funk in reach. Plan of care ongoing. See MAR and flowchart for full pt care and assessment.
[2025-01-09 07:29] LABS: ACT+ - POC 112 Seconds (82-134)
[2025-01-09 08:09] LABS: Urine Albumin 1+ (Neg - Trace); Urine Bilirubin Negative (Negative); Urine Character Slightly Cloudy (Clear); Urine Color Yellow; Urine Glucose Negative (Negative); Urine Ketone Negative (Negative); Urine Leukocyte Negative (Negative); Urine Nitrite Negative (Negative); Urine Occult Blood 2+ (Negative); Urine Urobilinogen Negative (Neg - 1+)
[2025-01-09 08:24] LABS: Urine Bacteria Few (Negative); Urine Squamous Cell 0-2 /LPF (Few)
[2025-01-09 08:25] LABS: Urine White Cell 0-2 /HPF (0-5)
[2025-01-09 09:40] LABS: ACT+ - POC 755 Seconds (82-134)
[2025-01-09 09:59] LABS: B.E. - POC -0.7 mmol/L; Glucose - POC 104 mg/dl (70-99); HCO3 - POC 24 mmol/L (21-28); Hematocrit - POC 36 % PCV (42-52); Hemodilution- POC No; Hemoglobin Calculated - POC 12.1; Ionized Calcium - POC 1.14 mmol/L (1.15-1.33); Lactate - POC 0.88 mmol/L (0.36-0.75); O2 Saturation %Calculated-POC 99.8 % (94-98); PCO2 - POC 38 mmHg (35-48); PO2 - POC 222 mmHg (83-108); POC Comment PRE; Potassium - POC 3.6 mmol/L (3.5-5.1); Sodium - POC 142 mmol/L (136-145); Specimen Type - POC Arterial; pH - POC 7.41 (7.35-7.45)
[2025-01-09 10:10] LABS: ACT+ - POC 642 Seconds (82-134)
[2025-01-09 10:37] LABS: ACT+ - POC 547 Seconds (82-134)
[2025-01-09 11:00] LABS: B.E. - POC 3.1 mmol/L; Glucose - POC 122 mg/dl (70-99); HCO3 - POC 28 mmol/L (21-28); Hematocrit - POC 30 % PCV (42-52); Hemodilution- POC Yes; Hemoglobin Calculated - POC 10.4; Lactate - POC 1.02 mmol/L (0.36-0.75); O2 Saturation %Calculated-POC 99.9 % (94-98); PCO2 - POC 43 mmHg (35-48); PO2 - POC 268 mmHg (83-108); POC Comment CPB; Potassium - POC 5.3 mmol/L (3.5-5.1); Sodium - POC 140 mmol/L (136-145); Specimen Type - POC Arterial; pH - POC 7.42 (7.35-7.45)
[2025-01-09 11:08] LABS: ACT+ - POC 520 Seconds (82-134)
[2025-01-09 11:35] LABS: B.E. - POC 1.2 mmol/L; Glucose - POC 227 mg/dl (70-99); HCO3 - POC 26 mmol/L (21-28); Hematocrit - POC 31 % PCV (42-52); Hemodilution- POC Yes; Hemoglobin Calculated - POC 10.5; Ionized Calcium - POC 1.07 mmol/L (1.15-1.33); Lactate - POC 1.92 mmol/L (0.36-0.75); PCO2 - POC 41 mmHg (35-48); PO2 - POC 368 mmHg (83-108); POC Comment CPB; Potassium - POC 5.7 mmol/L (3.5-5.1); Sodium - POC 139 mmol/L (136-145); Specimen Type - POC Arterial; pH - POC 7.41 (7.35-7.45)
[2025-01-09 11:43] LABS: ACT+ - POC 461 Seconds (82-134)
--- NOTE | 2025-01-09 11:51 | CM ---
pt in OR today, cm to follow
[2025-01-09 12:02] LABS: B.E. - POC -1.5 mmol/L; Glucose - POC 221 mg/dl (70-99); HCO3 - POC 23 mmol/L (21-28); Hematocrit - POC 33 % PCV (42-52); Hemodilution- POC Yes; Hemoglobin Calculated - POC 11.2; Ionized Calcium - POC 1.06 mmol/L (1.15-1.33); Lactate - POC 3.13 mmol/L (0.36-0.75); O2 Saturation %Calculated-POC 99.8 % (94-98); PCO2 - POC 39 mmHg (35-48); PO2 - POC 242 mmHg (83-108); POC Comment WARM; Potassium - POC 4.6 mmol/L (3.5-5.1); Sodium - POC 142 mmol/L (136-145); Specimen Type - POC Arterial; pH - POC 7.39 (7.35-7.45)
[2025-01-09 12:07] LABS: ACT+ - POC 498 Seconds (82-134)
[2025-01-09 12:33] LABS: B.E. - POC -0.4 mmol/L; Glucose - POC 203 mg/dl (70-99); HCO3 - POC 25 mmol/L (21-28); Hematocrit - POC 32 % PCV (42-52); Hemodilution- POC Yes; Ionized Calcium - POC 1.08 mmol/L (1.15-1.33); Lactate - POC 2.97 mmol/L (0.36-0.75); O2 Saturation %Calculated-POC 99.9 % (94-98); PCO2 - POC 41 mmHg (35-48); PO2 - POC 286 mmHg (83-108); POC Comment WARM; Potassium - POC 4.3 mmol/L (3.5-5.1); Sodium - POC 143 mmol/L (136-145); Specimen Type - POC Arterial; pH - POC 7.39 (7.35-7.45)
[2025-01-09 12:36] LABS: ACT+ - POC 126 Seconds (82-134)
[2025-01-09 12:43] LABS: B.E. - POC -2.2 mmol/L; Glucose - POC 165 mg/dl (70-99); HCO3 - POC 23 mmol/L (21-28); Hematocrit - POC 31 % PCV (42-52); Hemodilution- POC Yes; Hemoglobin Calculated - POC 10.6; Ionized Calcium - POC 1.25 mmol/L (1.15-1.33); Lactate - POC 3.23 mmol/L (0.36-0.75); O2 Saturation %Calculated-POC 99.8 % (94-98); PCO2 - POC 40 mmHg (35-48); PO2 - POC 229 mmHg (83-108); POC Comment POST; Potassium - POC 3.7 mmol/L (3.5-5.1); Sodium - POC 145 mmol/L (136-145); Specimen Type - POC Arterial; pH - POC 7.37 (7.35-7.45)
[2025-01-09 13:04] LABS: ACT-LR - POC 310 Seconds (116-155)
--- NOTE | 2025-01-09 13:21 | W.IMMPOSTOP ---
Addendum entered and electronically signed by Abelardo Hernandez MD 01/09/25 21:54:
[id number]
Original Note:
Surgical Immed Post Op Note
-
CARDIAC SURGERY OPERATIVE NOTE:
Preoperative Dx:
MVCAD
NSTEMI
Postoperative Dx:
Same
Procedures:
1) Median sternotomy
2) Takedown of EILEEN (narrow pedicle)
3) Endoscopic harvest/prep of RLE GSV
4) Endoscopic harvest/prep of L RA
5) CABG x 5 (EILEEN to LAD, GSV to D2, GSV to OM1, RA to OM2, GSV to RPDA)
6) ELAA (40mm AtriClip)
Surgeon:
Abelardo Hernandez M.D.
Assistants:
Sid Hernandez P.A.-C.; endoscopic harvest/prep of L RA; registered nurse first assistant throughout
Gaby Magallanes P.A.-C.; endoscopic harvest/prep of RLE GSV; [id number] chest closure
Anesthesia:
Justin Jansen C.R.N.A. and Vadim Raymundo M.D.
Perfusion:
Gerardo Serrano C.C.P.; XC: 97min, CPB: 150min
Findings:
EILEEN was healthy conduit w/ very brisk blood flow; ELD 2.5mm
GSV was healthy conduit w/ ELD 3.0-4.0mm
RA was healthy conduit w/ ELD 3.5mm
LAD was visible on the epicardial surface, scant scattered calcifications @ distal midpoint anastomosis; ELD 3.0mm
D2 was visible on the epicardial surface, scant scattered calcifications; ELD 2.0mm
OM1 was visible on the epicardial surface, scant scattered calcifications; ELD 1.4mm (anastomosis performed over 1.0mm shunt - noncoronary collateral flow)
OM2 was visible on the epicardial surface, scant scattered calcifications; ELD 2.0mm (anastomosis performed over 1.5mm shunt - noncoronary collateral flow)
RPDA was visible on the epicardial surface, scant scattered calcifications; ELD 3.0mm
HENOK w/ windsock morphology - successfully occluded at base - confirmed on postoperative BRYSON
Good backbleeding from all grafts; good flow on transit-time U/S flow-probe assessment
Post-BRYSON: Normal biventricular function; unchanged mild AI, CT, MR, and TR; HENOK confirmed excluded
Implants:
AtriClip 40mm
CT x 4 (B/L pleural, inferior mediastinal, superior mediastinal)
Sternal wires x 8
Sternal 'X' plate w/ 4- 16mm and 4- 14mm screws
Sternal 'Square' plate w/ 4 - 12mm screws
Complications:
None
Transfusions:
1pk PLTs
Condition:
67 sinus; 94/58; CVP 19; 100%
GTTS: insulin 0.5, precedex 0.5, cardene 2.5, levophed 5
Stable/guarded to CVICU
[2025-01-09 14:03] LABS: Glucose - Point of Care 150 mg/dl (70-99)
[2025-01-09 14:10] LABS: B.E. -3.3 mmol/L; HCO3 22.1 mmol/L (21-28); Ionized Calcium 1.18 mMOL/L (1.15-1.33); O2 Saturation % 98.2 % (94-98); PCO2 40 mmHg (35-48); PO2 85 mmHg (83-108); Potassium 4.1 mMOL/L (3.5-5.1); Sodium 137 mMOL/L (136-145); pH 7.35 (7.35-7.45)
[2025-01-09 14:11] LABS: Hematocrit 33.2 % (39.0-52.0); Hemoglobin 11.9 g/dL (13.0-18.0); Platelet Count 161 10^3/uL (130-400)
--- NOTE | 2025-01-09 14:16 | W.PN.CARDCBS ---
Addendum entered and electronically signed by Roberto Jimenez DO 01/09/25 16:33:
I saw and examined the patient.
The Polo Coach's note was reviewed and I agree with the note.
Comment:
Plan:
Cont post op care
Wean vent as per protocol
Wean pressors as able
Cont DAPT
Discussed with nursing and with surgery.
Original Note:
Today's Communication / Plan
-
Continue post-op care
Impression / Plan
-
Primary Jig Operator: Dr. AISHWARYA Davey
Assessment:
Presented with CP
NSTEMI
CAD
s/p mid circ SETH 09/2017
MV CAD by cath 01/05/25
s/p CABG x 5 (EILEEN to LAD, GSV to D2, GSV to OM1, RA to OM2, GSV to RPDA) 01/09/2025
s/p ELAA 01/09/2025
HTN
HLD
Back pain
Stress echo 11/2017: Negative for ischemia with normal EF, suboptimal evaluation, inferior segment/translational motion with no clear stress-induced ischemia
Echo 2017: normal
Echo 01/05/2025: EF 50 to 55%, inferoseptal and inferolateral hypokinesis, mild concentric LVH, mild MR, mild AR, mild TR, PAP 19 mmHg
Plan:
-Presented with chest tightness. Ruled in for NSTEMI with troponin peaking at 4.3 and trending down thereafter.
-Cardiac catheterization 01/05/2025 revealed multivessel CAD. Now s/p CABG x 5 (EILEEN to LAD, GSV to D2, GSV to OM1, RA to OM2, GSV to RPDA) 01/09/2025 w/ Dr. Hernandez
-Seen immediately post-op. Remains intubated, sedated.
-On levo @4. BP stable.
-Post-op EKG SR w/ lateral T wave inversions noted.
-Hgb stable at 11.9. Plt 161. Received 1 unit PLTs intra-op
-Continue aspirin, plavix
-Continue crestor 40mg daily. LDL 54.
-Continue post-op care
Progress Note - Jig Operator
Subjective
Date of Service: January 09, 2025
Intubated.
Objective
Labs:
01/09/25 14:01
Labs
Hgb 11.9 g/dL (13.0-18.0) L 01/09/25 14:01
Hct 33.2 % (39.0-52.0) L 01/09/25 14:01
Plt Count 161 10^3/uL (130-400) 01/09/25 14:01
PT 14.0 Sec (11.4-14.6) 01/06/25 11:49
INR 1.05 01/06/25 11:49
APTT 102.4 Sec (23.4-35.0) H 01/09/25 05:08
Sodium 141 mmol/L (135-145) 01/07/25 02:18
Potassium 4.0 mmol/L (3.5-5.1) 01/07/25 02:18
BUN 13 mg/dl (9-20) 01/07/25 02:18
Creatinine 0.7 mg/dL (0.7-1.3) 01/07/25 02:18
Glucose 106 mg/dl (70-99) H 01/07/25 02:18
Vital Signs and I&O:
Vital Signs
Temp Pulse Resp BP Pulse Ox
98.1 F 69 12 62 95
01/09/25 04:55 01/09/25 14:00 01/09/25 14:00 01/09/25 14:00 01/09/25 04:55
Vital Signs
Temp Pulse Resp BP Pulse Ox
98.1 F 69 12 62 95
01/09/25 04:55 01/09/25 14:00 01/09/25 14:00 01/09/25 14:00 01/09/25 04:55
Intake & Output
01/07/25 01/08/25 01/09/25 01/10/25
06:59 06:59 06:59 06:59
Intake Total 168 / 168 576 / 576 960 / 960
Balance 168 / 168 576 / 576 960 / 960
Physical Exam
Physical Exam
GEN: No distress, intubated, sedated
HEENT: mmm
LUNGS: CTA b/l, no wheezes/rales
CV: Reg, S1/S2, no murmur
EXT: No cyanosis, clubbing, edema
SKIN: Warm, pink, dry. No rash
[2025-01-09] MEDS: NSS 500 IV (14:31)
[2025-01-09 14:32] LABS: APTT 31.7 Sec (23.4-35.0); INR 1.59; PT 19.2 Sec (11.4-14.6)
[2025-01-09 14:39] LABS: Blood Urea Nitrogen 13 mg/dl (9-20); Estimated Creatinine Clearance 101 ml/min; Glucose 135 mg/dl (70-99); Magnesium 2.5 mg/dl (1.6-2.3)
[2025-01-09 15:06] LABS: Glucose - Point of Care 133 mg/dl (70-99)
[2025-01-09 16:22] LABS: Glucose - Point of Care 140 mg/dl (70-99)
--- NOTE | 2025-01-09 16:39 | W.PN.UPDATE ---
Update Note
Progress Note Update
69 year old male with known coronary artery disease and prior stent to LCx in 2018, began experiencing upper chest tightness 10 days ago (12/26) that resolved spontaneously. Similar symptoms recurred again several days later and again on 01/04/2025,
prompting patient to seek treatment at [facility] emergency room. ECG with nonspecific ST changes. Initial troponin elevated at 4.2, consistent with NSTEMI. Patient underwent left heart catheterization 01/05/25 which revealed triple-vessel coronary
disease. Last Losartan dose 01/05.
IV fluids: 1400
U.O.:� 650
Blood:� 1 plt
Wires:� none
Drips: Levophed @ 6, Cardene @ 2.5, Precedex @ 0.5, Insulin @ 0.5
�
NEURO: sedated, pupils +2mm B/L
RESP: #8OT @26cm> 550/40%/18/01. Lungs clear B/L. 2 mediastinal (15cc on arrival) and R/L pleural (20cc on arrival) chest tubes to -20cm suction. Sanguineous drainage, no air leak, no crepitus
CV: RRR +S1, S2, no S3, +rub, no murmur. Aquacell to median sternotomy. RIJ w/Slik
ABD: round, soft, no BS
EXT: no edema, +2/4 DP pulses B/L, no femoral bruit, RLE MINGO wrap intact; LUE MINGO wrap intact; right radial A-line intact
: Honeycutt with clear yellow urine
�
A/P: POD #0 s/p CABG x 5 (EILEEN to LAD, GSV to D2, GSV to OM1, RA to OM2, GSV to RPDA), ELAA (40mm AtriClip)
BRYSON: EF� 55-60%
- wean and extubate
# NSTEMI/CAD
- will require ASA, Plavix, statin, beta theresa
�
# acute surgical blood loss anemia-expected
- trend CBC
�
# HTN
- resume� Losartan as BP permits
[2025-01-09 16:54] LABS: B.E. - POC -0.7 mmol/L; Blood Urea Nitrogen - POC 13 mg/dl (3-120); Chloride - POC 108 mmol/L (96-111); Creatinine - POC 0.84 mg/dl (0.3-1.0); Glucose - POC 130 mg/dl (70-99); HCO3 - POC 24 mmol/L (21-28); Hematocrit - POC 32 % PCV (42-52); Hemodilution- POC No; Ionized Calcium - POC 1.17 mmol/L (1.15-1.33); Lactate - POC 2.93 mmol/L (0.36-0.75); PCO2 - POC 40 mmHg (35-48); PO2 - POC 72 mmHg (83-108); Potassium - POC 4.6 mmol/L (3.5-5.1); Sodium - POC 141 mmol/L (136-145); Specimen Type - POC Arterial; pH - POC 7.39 (7.35-7.45)
[2025-01-09 16:56] LABS: Glucose - Point of Care 139 mg/dl (70-99)
--- NOTE | 2025-01-09 17:00 | PTCARENOTE ---
Pt received from CV[facility] [id number]; Sedated and intubated; SR with 1st degree block rhythm on monitor; VSS; Doppler DP and +2 radial pulses present; Lungs diminished at bases; ETT size 8 positioned and secured at 26 cm right lip;moved to 28 after xray;
Ventilator settings SIMV 12/550/5/FiO2 40%; CTx4 to -20 cm wall suction draining bloody drainage - no air leak, tidaling, or crepitus noted; Hypoactive BS; Honeycutt catheter in place draining clear, yellow urine; Sternal incision covered with Aquacell
with scant amount of bloody drainage; Right A-line in place - all lines zeroed and leveled; PIVx1 - #20 present in right forearm; Levo/insulin/precedex infusing 250 ml bolus of LR ordered and given x3;; see nursing documentation for further details.
CXR done at bedside; RADHA DHILLON adjusted ETT from 26 cm to 28 cm; ETT secured at right lip
[2025-01-09] MEDS: DILAUDID 0.5 MG IV ×3 (17:07→23:24)
[2025-01-09 17:20] LABS: Hematocrit 33.4 % (39.0-52.0); Hemoglobin 12.1 g/dL (13.0-18.0); Platelet Count 200 10^3/uL (130-400)
--- NOTE | 2025-01-09 17:21 | RESPNOTE ---
Patient extubated to 6L NC after 30 minute cpap wean. Spo2 97%, clear breath sounds b/l. No stridor noted.
--- NOTE | 2025-01-09 17:35 | CON.INTV ---
Consultation
Consultation Request
Date/Time Consultation Requested: 01/09/2025
Date/Time Consultation Performed: 01/09/2025
Requesting Provider: Abelardo Hernandez
Performing Provider: Yuliya Metzger
Reason for Consultation: post CABG
Medical History
-
Chief Complaint: Chest pain
History of Present Illness:
Patient is a 69-year-old gentleman with known history of coronary artery disease and remote history of drug-eluting stent in the left circumflex. He presented to the hospital with intermittent chest discomfort and was noted to have non-ST elevation
MD. Patient had subsequently cardiac catheterization performed which showed multivessel disease and CT surgery was subsequently consulted. Patient was electively taken to the OR today for coronary artery bypass graft and left atrial appendage
exclusion. Postsurgery he was admitted to cardiovascular ICU and product safety compliance leader consult was requested for further input.
CAD s/p mid circ SETH 09/2017
HTN
HLD
Back pain
Past Medical History
Past Medical History: Other (in HPI)
Social History
Tobacco: Non-Smoker
Alcohol: None
Personal:
Living: With Family
Family History
Family History: Adopted
Allergies / Home Medications
Allergies
Allergy/AdvReac Type Severity Reaction Status Date / Time
No Known Allergies Allergy Verified 01/04/25 13:56
Home Medications
�Medication �Instructions �Recorded �Confirmed �Last Taken �Type
aspirin 81 mg tablet,delayed 81 mg PO DAILY Blood Clot 01/04/25 01/04/25 01/04/25 History
release Prevention/Tx
losartan 25 mg tablet 25 mg PO DAILY Blood Pressure 01/04/25 01/04/25 01/04/25 History
rosuvastatin 40 mg tablet (Crestor) 40 mg PO DAILY High Cholesterol 01/04/25 01/04/25 01/04/25 History
saw palmetto 160 mg capsule 160 mg PO DAILY 01/04/25 01/04/25 01/04/25 History
therapeutic multivitamin 1 tab PO DAILY Supplement 01/04/25 01/04/25 01/04/25 History
Review of Systems
-
Hematologic/Lymphatic: Other (Anticipated postop pain, fair control. No other new symptoms reported.)
Vitals / Labs / Diagnostic Testing
Vital Signs
Temp Pulse Resp BP Pulse Ox
97.3 F 87 23 89/62 95
01/09/25 16:00 01/09/25 16:50 01/09/25 16:50 01/09/25 16:00 01/09/25 16:50
Lab Data
01/09/25 16:57
01/09/25 14:01
Laboratory Results
01/09/25 01/09/25
05:08 14:01
PT 19.2 H
INR 1.59
APTT 102.4 H 31.7
pH 7.35
pCO2 40
pO2 85
HCO3 22.1
O2 Delivery Level
Diagnostic Testing:
Physical Exam
-
HEENT: Normocephalic
Cardiovascular: S1/S2
Respiratory: Clear and Non-Labored Respirations
GI: Soft and Non Distended
Neurology: Awake and Alert
Skin: Warm
General: Comfortable
Assessment
-
S/p CABG x 5 with left atrial appendage exclusion, POD #0
Titrate off pressors per protocol. Currently Levophed infusing@ 4
ECHO reviewed with low/normal function.
Right IJ Cordis in place
Management of chest tubes per primary service, sanguinous out put noted
Successfully extubated, on Nasal cannula @ 6 ltr, saturating 98%. Work of breathing acceptable
Pain control
ABG(s) reviewed. 7.35, 40, 85
CXR with no obvious opacities/infiltrates
Maintain supplement oxygen as needed
No prior history of pulmonary disease, CT Chest unremarkable
Aspiration precautions
Encouraged incentive spirometry, OOB/ambulation/early mobility
Advance diet as tolerated following extubation
Monitor critical I/O's
Honeycutt/chest tube output
Hb/platelets postoperatively stable
Trend CBC for now
Can transfuse if indicated for Hb <7, plt <50 in surgical patients
DVT prophylaxis. SCDs for now
Insulin protocol initiated and ongoing
Transition to SQ/off as indicated per team
We will follow
Critical Care time 58 mins -- The patient is admitted for acute critical illness for the treatment of vital organ failure and/or prevention of further life-threatening conditions. Total care includes time spent in review of history, physical exam,
medications, hemodynamic/ventilator parameters, laboratory data, imaging and discussion with house staff, pharmacy, respiratory therapy, advanced manufacturing consultant, and nursing.
Data:
CT Chest 01/2025: 1. No significant acute abnormality identified in the chest within the limits of unenhanced CT, as described above.
2. Moderate coronary artery calcifications.
3. Small hiatal hernia.
BRYSON 01/2025: Borderline low normal left ventricular systolic function, EF mild LVH, stage I diastolic dysfunction.
Normal right ventricular function.
Mild AI. Mild PI.
Trace MR. Trace TR.
Left heart cath, 01/2025: 1. Multivessel coronary artery disease with moderately calcified coronary arteries.
2. Low to normal LVEDP at 6 mmHg.
ECHO 12/2024: Normal left ventricular chamber size.
Mildly reduced left ventricular systolic function.
Mild concentric left ventricular hypertrophy.
Inferoseptal and inferolateral hypokinesis.
Left ventricular ejection fraction is 50-55% by volumetric assessment.
Mitral valve opens normally.
Mild mitral regurgitation.
Mild aortic regurgitation.
Mild tricuspid regurgitation.
Estimated pulmonary artery pressure of 19 mmHg assuming a right atrial pressure
of 3 mmHg.
Mild pulmonic regurgitation.
No pericardial effusion.
The IVC is of normal size and demonstrates normal respiratory variation
--- NOTE | 2025-01-09 18:21 | W.PN.UPDATE ---
Update Note
Progress Note Update
EPOC CPAP ABG 1651:
7.38/40.3/71.6/24.3/-0.7/94%
Proceed to extubation
[2025-01-09 18:39] LABS: Glucose - Point of Care 142 mg/dl (70-99)
[2025-01-09] MEDS: CRESTOR PO (19:03)
[2025-01-09] MEDS: NEURONTIN PO ×2 (19:03→19:04)
[2025-01-09] MEDS: PACERONE PO (19:05)
[2025-01-09] MEDS: TYLENOL PO (19:05)
[2025-01-09] MEDS: LOW STRENGTH ASPIRIN 81 MG PO (19:19)
[2025-01-09] MEDS: ANCEF 5 IV (19:19)
[2025-01-09] MEDS: ROXICODONE 5 MG PO ×2 (19:20→23:24)
[2025-01-09] MEDS: FLEXERIL 5 MG PO (19:20)
[2025-01-09] MEDS: SENOKOT-S PO (19:20)
--- NOTE | 2025-01-09 20:15 | PTCARENOTE ---
received pt from previous rn. pt AAOx4, NSR w/ 1st degree AVB per tele monitor HR 80s. +rub, +pulses throughout. pox 97% on 3L NC. lungs diminished. CTx4 to -20cm wall suction draining red blood. no tidaling/air leak/crepitus. IS 500. hypoactive bs.
renteria draining clear yellow urine. L radial incision intact w/ old drainage. R leg and sternal incision intact. r groin puncture intact. all lines leveled and zeroed. pivx1 infusing insulin per glycemic protocol. plan of care discussed questions
encouraged. call funk within reach.
[2025-01-09] MEDS: SODIUM BICARBONATE 50 MEQ IV (20:17)
[2025-01-09] MEDS: CALCIUM GLUCONATE 130 MG IV (20:24)
[2025-01-09 20:33] LABS: Glucose - Point of Care 118 mg/dl (70-99)
[2025-01-09] MEDS: DILAUDID 0.25 MG IV (21:47)
[2025-01-09] MEDS: ASPIR LOW (ENTERIC COATED) PO (21:57)
[2025-01-09] MEDS: TOPROL XL PO (21:57)
[2025-01-09] MEDS: THERAGRAN PO (21:57)
[2025-01-09] MEDS: TYLENOL 1000 MG PO (21:58)
[2025-01-09] MEDS: NEURONTIN 100 MG PO (21:58)
[2025-01-09] MEDS: PACERONE 200 MG PO (22:00)
[2025-01-09 22:17] LABS: Glucose - Point of Care 99 mg/dl (70-99)
[2025-01-10] VITALS (36 sets, daily range): BP systolic 83–120; BP diastolic 52–80; PULSE 78; O2SAT 97; BMI 28.9
--- NOTE | 2025-01-10 | PTCARENOTE ---
pt c/o pain around incision site and in back, SEE MAR. VSS, NSR w/ AVB per tele monitor HR 80-90s. otherwise assessment remains unchanged
[2025-01-10 00:09] LABS: Glucose - Point of Care 121 mg/dl (70-99)
[2025-01-10] MEDS: CALCIUM GLUCONATE 100 IV (00:13)
[2025-01-10] MEDS: DILAUDID 0.25 MG IV ×3 (01:11→23:11)
[2025-01-10 02:00] LABS: Glucose - Point of Care 119 mg/dl (70-99)
[2025-01-10] MEDS: DILAUDID 0.5 MG IV (03:03)
--- NOTE | 2025-01-10 03:26 | W.PN.CT ---
Today's Communication / Plan
-
Plan:
-No major issues overnight. Hemodynamically and neurologically intact
-Successfully extubated 01/09/25 @ 1700
-Weaned off Levophed gtt last night @ 2330, remains on insulin gtt per protocol. Cardene gtt for radial graft was d/c'd yesterday d/t to hypotension
-No swan, u/o 945 mL since OR
-Suspected postop acute pericarditis, ST elevations noted on EKG, as well as +rub, will give Toradol x 4 doses (cr 0.9), will discuss addition of Colchicine
-Monitor chest tube output: 2meds 110/205, R/L pleurals 110/270. CXR looks clear on my review, mild basilar atelectasis without ptx, f/u official report
-Cont. current meds (ASA, Plavix, Crestor, Amiodarone, BB if BP permits)
-Will add Norvasc for radial graft patency
-Will hold AM dose of BB as bp too soft for both Norvasc and Toprol xL
-D/C'd SLIC and A-line this AM @ 0525
-Will d/c renteria catheter @ 0600
-Will transfer to tele phase today when off insulin gtt
-No temporary PW
-Maintain cordis
-Encourage use of IS
-Wean off of O2 as tolerated
-OOB into chair/Ambulate
Assessment / Plan
-
Assessment:
-S/P Median sternotomy/ CABG x 5 (EILEEN to LAD, GSV to D2, GSV to OM1, RA to OM2, GSV to RPDA)/Endoscopic harvest/prep of RLE GSV/Endoscopic harvest/prep of L RA/ELAA (40mm AtriClip), by Dr. Hernandez, 01/09/25, pod#1
-Severe 3v CAD
-Hx CAD S/P PCI with SETH to mid circ, 09/2017
-NSTEMI (peak trop 4.31)
-[place]
-LVEF 50-55%, improved to 55-60% postop per intraop BRYSON
-Mild AI
-Mild MR
-Mild TR
-HTN
-HLD
-Left hand abscess/cellulitis S/p I&D
-Acute postop blood loss/Anemia (stable without PRBC's)
-Intraop coagulopathy/thrombocytopenia (transfused 1 {5pk} plts)
-Acute postop atelectasis
-Acute postop hypovolemia with subsequent hypervolemia
-Acute postop EKG changes c/w acute pericarditis, +rub on auscultation
Discussed patient care with: Cardiology, Nursing, Respiratory Therapy, Pharmacy and Care Team
Subjective
Procedure
S/P Median sternotomy/ CABG x 5 (EILEEN to LAD, GSV to D2, GSV to OM1, RA to OM2, GSV to RPDA)/Endoscopic harvest/prep of RLE GSV/Endoscopic harvest/prep of L RA/ELAA (40mm AtriClip), by Dr. Hernandez, 01/09/25
-
Date of Service: January 10, 2025
Pt c/o incisional pain, otherwise feels well
Objective Data
-
PT 19.2 Sec (11.4-14.6) H 01/09/25 14:01
INR 1.59 01/09/25 14:01
APTT 31.7 Sec (23.4-35.0) 01/09/25 14:01
Vital Signs
Vital Signs
Temp Pulse Resp BP Pulse Ox
99.7 F 89 22 98/75 94
01/10/25 03:00 01/10/25 03:00 01/10/25 03:00 01/10/25 03:00 01/10/25 03:00
CT Intake/Output/Weight
01/09/25 01/09/25 01/10/25
06:59 18:59 06:59
Intake Total 480 / 960 493.7 / 493.7
Output Total 600 / 1290 690 / 1290
Balance 480 / 960 -600 / -796.3 -196.3 / -796.3
SaO2: 94 (2L)
Physical Exam
-
General: Awake, Oriented and AOx3
Cardiovascular: Regular rate & rhythm, No Murmurs, Rub (likely d/t acute pericarditis) and No Gallop
Respiratory: Decreased Breath Sounds (at bases, otherwise clear)
Sternum: Stable
Incision: Clean, Dry, Intact and Dressing Intact
Extremities: Other (+trace edema)
Data Reviewed
-
Lab Results: Results Reviewed
Medications: Active Meds Reviewed
Chest X-Ray: Report Reviewed and Image Reviewed
ECG: Report Reviewed and Image Reviewed
[2025-01-10 03:59] LABS: Glucose - Point of Care 104 mg/dl (70-99)
[2025-01-10 04:09] LABS: Hematocrit 33.7 % (39.0-52.0); Hemoglobin 12.1 g/dL (13.0-18.0); Mean Corp Hgb Conc. 35.9 g/dL (33.0-37.0); Mean Corpuscular Hgb 32.5 pg (27.0-31.0); Mean Corpuscular Volume 90.6 fL (80.0-94.0); Mean Platelet Volume 11.4 fL (7.4-10.4); Platelet Count 184 10^3/uL (130-400); Red Blood Cell Count 3.72 10^6/uL (4.70-6.10); Red Cell Dist. Width 12.9 % (11.5-14.5); White Blood Cell Count 20.7 10^3/uL (4.8-10.8)
[2025-01-10 04:18] LABS: PT 15.5 Sec (11.4-14.6)
[2025-01-10 04:35] LABS: Blood Urea Nitrogen 18 mg/dl (9-20); Calcium 9.5 mg/dl (8.4-10.2); Carbon Dioxide 27 mmol/L (22-30); Chloride 107 mmol/L (98-107); Estimated Creatinine Clearance 79 ml/min; Glucose 105 mg/dl (70-99); Magnesium 2.1 mg/dl (1.6-2.3); Potassium 5.1 mmol/L (3.5-5.1); Sodium 141 mmol/L (135-145); eGFR > 60.00
[2025-01-10] MEDS: ANCEF 5 IV ×2 (04:36→12:03)
--- NOTE | 2025-01-10 04:59 | PTCARENOTE ---
routine labs obtained, ekg completed. see MAR for pain management. assessment remains unchanged
[2025-01-10] MEDS: TYLENOL 1000 MG PO ×3 (05:07→21:00)
[2025-01-10] MEDS: TORADOL 15 MG IV ×3 (05:08→17:07)
[2025-01-10 05:54] LABS: Glucose - Point of Care 114 mg/dl (70-99)
[2025-01-10] MEDS: MYLICON 80 MG PO (06:13)
--- NOTE | 2025-01-10 06:49 | PTCARENOTE ---
SLIC and A-line s/c'd and dexter removed @0610 pt dtv by 1210.
[2025-01-10 07:53] LABS: Glucose - Point of Care 118 mg/dl (70-99)
--- NOTE | 2025-01-10 08:05 | W.PN.ANS.POP ---
Anesthesia Post Operative
- Anesthesia Post Op Note
Vital Signs Stable-See Nursing Note: Yes
Airway Patent: Yes
Adequate Pain Control: Yes
Change in Mental Status: No
Current Postoperative Nausea & Vomiting: No
Anesthesia Complications: No
General Anesthetic Recall: No
Unplanned Admission: No
Post Op Hydration Adequate: Yes
--- NOTE | 2025-01-10 08:22 | PTCARENOTE ---
Patient received from material handler 2nd shift resting oob in chair, AAO x 3. NSR via cm, SaO2 @ 97% on 3lnc. RIJ Cordis w/kvo infusing. Insulin infusing peripherally, titrating per glycemic protocol. Mediastinal chest tubes x 2, L and R pleural chest tubes - to
separate pleurevacs, no air leak or crepitus noted on -20cm suction. All procedural sites stable. Patient updated to plan of care for the day, in agreement. See work list for full assessment and interventions performed.
[2025-01-10] MEDS: PROTONIX 40 MG PO (08:41)
[2025-01-10] MEDS: ROXICODONE 5 MG PO ×3 (08:41→19:34)
[2025-01-10] MEDS: NEURONTIN 100 MG PO ×3 (08:41→21:00)
[2025-01-10] MEDS: FEOSOL 325 MG PO (08:42)
[2025-01-10] MEDS: PACERONE 200 MG PO ×3 (08:42→21:00)
[2025-01-10] MEDS: VITAMIN C 500 MG PO (08:42)
[2025-01-10] MEDS: MAGNESIUM OXIDE 500 MG PO ×2 (08:42→19:32)
[2025-01-10] MEDS: LOW STRENGTH ASPIRIN 81 MG PO (08:42)
[2025-01-10] MEDS: SENOKOT-S 1 TABLET PO ×2 (08:42→19:32)
[2025-01-10] MEDS: PLAVIX 75 MG PO (08:42)
[2025-01-10] MEDS: CRESTOR 40 MG PO (08:42)
[2025-01-10] MEDS: BACTROBAN 2% OINTMENT 1 APPLIC NASAL ×2 (08:42→19:32)
[2025-01-10] MEDS: LR 250 IV (08:46)
[2025-01-10] MEDS: LIDOCAINE 4% PATCH TOPICAL (09:04)
[2025-01-10] MEDS: ProAmatine 5 MG PO ×3 (09:30→18:02)
[2025-01-10 10:01] LABS: Glucose - Point of Care 100 mg/dl (70-99)
[2025-01-10] MEDS: FLEXERIL 5 MG PO (10:02)
[2025-01-10] MEDS: NORVASC 2.5 MG PO (10:57)
[2025-01-10] MEDS: NSS IV (11:13)
[2025-01-10 12:03] LABS: Glucose - Point of Care 120 mg/dl (70-99)
--- NOTE | 2025-01-10 12:08 | PTCARENOTE ---
VS obtained, assessment stable. Patient resting comfortably. Importance of I.S. reinforced, patient demonstrated to 750ml.
--- NOTE | 2025-01-10 13:33 | W.PN.INTV ---
Addendum entered and electronically signed by Yuliya Metzger MD 01/11/25 07:07:
Patient transferred to telemetry floor. Digital Strategist service will sign off, please call as needed.
Original Note:
Today's Communication / Plan
Recommendations
- Incentive spirometry
- Monitor WBC count closely, monitor for any fever
Assessment
-
Patient is a 69-year-old gentleman with known history of coronary artery disease and remote history of drug-eluting stent in the left circumflex. He presented to the hospital with intermittent chest discomfort and was noted to have non-ST elevation
IA. Patient had subsequently cardiac catheterization performed which showed multivessel disease and CT surgery was subsequently consulted. Patient was electively taken to the OR today for coronary artery bypass graft and left atrial appendage
exclusion. Postsurgery he was admitted to cardiovascular ICU and eyeglass frames polisher consult was requested for further input.
69-year-old gentleman with non-ST elevation IA and coronary artery disease, multivessel, noted on cardiac catheterization, s/p CABG x 5 with left atrial appendage exclusion, POD #1
Titrated off pressors per protocol.
ECHO reviewed with low/normal function.
Right IJ Cordis in place
Management of chest tubes per primary service, sanguinous out put noted
Successfully extubated, on Nasal cannula @ 3 ltr, saturating 98%. Work of breathing normal.
Pain control
CXR with no obvious opacities/infiltrates, ET ube removed
Maintain supplement oxygen as needed
No prior history of pulmonary disease, CT Chest unremarkable
Aspiration precautions
Encouraged incentive spirometry, OOB/ambulation/early mobility
Advance diet as tolerated following extubation
Monitor critical I/O's
Honeycutt/chest tube output
Hb/platelets postoperatively stable. WBC count went up to 20.7 today. Afebrile.
Trend CBC for now
Can transfuse if indicated for Hb <7, plt <50 in surgical patients
DVT prophylaxis. SCDs for now
Insulin protocol initiated and ongoing
Transition to SQ/off as indicated per team
# Suspected Acute pericarditis. ST elevation noted in lateral leads. Patient initiated on Ketorolac.
Critical Care time 45 mins -- The patient is admitted for acute critical illness for the treatment of vital organ failure and/or prevention of further life-threatening conditions. Total care includes time spent in review of history, physical exam,
medications, hemodynamic/ventilator parameters, laboratory data, imaging and discussion with house staff, pharmacy, respiratory therapy, saturator, and nursing.
Data:
CT Chest 01/2025: 1. No significant acute abnormality identified in the chest within the limits of unenhanced CT, as described above.
2. Moderate coronary artery calcifications.
3. Small hiatal hernia.
BRYSON 01/2025: Borderline low normal left ventricular systolic function, EF mild LVH, stage I diastolic dysfunction.
Normal right ventricular function.
Mild AI. Mild PI.
Trace MR. Trace TR.
Left heart cath, 01/2025: 1. Multivessel coronary artery disease with moderately calcified coronary arteries.
2. Low to normal LVEDP at 6 mmHg.
ECHO 12/2024: Normal left ventricular chamber size.
Mildly reduced left ventricular systolic function.
Mild concentric left ventricular hypertrophy.
Inferoseptal and inferolateral hypokinesis.
Left ventricular ejection fraction is 50-55% by volumetric assessment.
Mitral valve opens normally.
Mild mitral regurgitation.
Mild aortic regurgitation.
Mild tricuspid regurgitation.
Estimated pulmonary artery pressure of 19 mmHg assuming a right atrial pressure
of 3 mmHg.
Mild pulmonic regurgitation.
No pericardial effusion.
The IVC is of normal size and demonstrates normal respiratory variation
Subjective Dataa
Subjective Data
Date of Service:
Date of Service: January 10, 2025
Subjective:
Patient comfortably sitting in chair in no acute distress.
Review of Systems
Genitourinary: Other (Other than postoperative pain, all 14 systems reviewed and negative except as stated above in the history of present illness.)
Objective Data
Data Reviewed
Vital Signs / I&O / Oxygen:
Vital Signs
Temp Pulse Resp BP Pulse Ox
98.2 F 66 15 89/55 94
01/10/25 12:00 01/10/25 13:10 01/10/25 13:00 01/10/25 13:00 01/10/25 12:00
Intake and Output
01/09/25 01/10/25 01/11/25
06:59 06:59 06:59
Intake Total 960 / 960 548.6 / 560.9 564.1 / 564.1
Output Total 1475 / 1475 300 / 300
Balance 960 / 960 -926.4 / -914.1 264.1 / 264.1
SaO2 94
Nasal Cannula flow liters per 2
minute
Physical Exam
General: Comfortable
HEENT: Normocephalic
Cardiovascular: S1-S2
Respiratory: Clear and Non-Labored Respirations
GI: Soft and Non Distended
Neurology: Awake, Alert and Oriented
Skin: Warm
Labs/Micro/Reports
Lab Data
01/10/25 03:58
01/10/25 03:58
Laboratory Results
01/09/25 01/10/25
14:01 03:58
PT 19.2 H 15.5 H
INR 1.59 1.20
APTT 31.7
pH 7.35
pCO2 40
pO2 85
HCO3 22.1
O2 Delivery Level
[2025-01-10 14:00] LABS: Glucose - Point of Care 109 mg/dl (70-99)
--- NOTE | 2025-01-10 14:21 | W.PN.CARDCBS ---
Today's Communication / Plan
-
Plan:
-Presented with chest tightness. Ruled in for NSTEMI with troponin peaking at 4.3 and trending down thereafter.
-Cardiac catheterization 01/05/2025 revealed multivessel CAD. Now s/p CABG x 5 (EILEEN to LAD, GSV to D2, GSV to OM1, RA to OM2, GSV to RPDA) 01/09/2025 w/ Dr. Hernandez
- Extubated on January 09, 2025 around 5 PM and stable overnight
- Weaned off Levophed last night around 11:30 PM, continued on an insulin drip. Needed some midodrine this morning to tolerate calcium channel theresa for his radial graft. Morning beta-theresa on hold given soft blood pressures.
-Post-op EKG sinus rhythm with diffuse ST elevations concerning for possible postoperative pericarditis.
- Patient received 1 unit of platelets intraoperatively. Hemoglobin stable. Continue to monitor closely.
-Continue aspirin, plavix, getting IV amiodarone for postoperative atrial fibrillation along with p.o. load.
-Continue crestor 40mg daily. LDL 54.
-Continue post-op care
Impression / Plan
-
Primary Cmm Programmer: Dr. AISHWARYA Davey
Assessment:
Presented with CP
NSTEMI
CAD
s/p mid circ SETH 09/2017
MV CAD by cath 01/05/25
s/p CABG x 5 (EILEEN to LAD, GSV to D2, GSV to OM1, RA to OM2, GSV to RPDA) 01/09/2025
s/p ELAA 01/09/2025
HTN
HLD
Back pain
Stress echo 11/2017: Negative for ischemia with normal EF, suboptimal evaluation, inferior segment/translational motion with no clear stress-induced ischemia
Echo 2017: normal
Echo 01/05/2025: EF 50 to 55%, inferoseptal and inferolateral hypokinesis, mild concentric LVH, mild MR, mild AR, mild TR, PAP 19 mmHg
Plan:
-Presented with chest tightness. Ruled in for NSTEMI with troponin peaking at 4.3 and trending down thereafter.
-Cardiac catheterization 01/05/2025 revealed multivessel CAD. Now s/p CABG x 5 (EILEEN to LAD, GSV to D2, GSV to OM1, RA to OM2, GSV to RPDA) 01/09/2025 w/ Dr. Hernandez
- Extubated on January 09, 2025 around 5 PM and stable overnight
- Weaned off Levophed last night around 11:30 PM, continued on an insulin drip. Needed some midodrine this morning to tolerate calcium channel theresa for his radial graft. Morning beta-theresa on hold given soft blood pressures.
-Post-op EKG sinus rhythm with diffuse ST elevations concerning for possible postoperative pericarditis.
- Patient received 1 unit of platelets intraoperatively. Hemoglobin stable. Continue to monitor closely.
-Continue aspirin, plavix, getting IV amiodarone for postoperative atrial fibrillation along with p.o. load.
-Continue crestor 40mg daily. LDL 54.
-Continue post-op care
Progress Note - Cmm Programmer
Subjective
Date of Service: January 10, 2025
No significant overnight events.
Objective
Labs:
01/10/25 03:58
01/10/25 03:58
Labs
Hgb 12.1 g/dL (13.0-18.0) L 01/10/25 03:58
Hct 33.7 % (39.0-52.0) L 01/10/25 03:58
Plt Count 184 10^3/uL (130-400) 01/10/25 03:58
PT 15.5 Sec (11.4-14.6) H 01/10/25 03:58
INR 1.20 01/10/25 03:58
APTT 31.7 Sec (23.4-35.0) 01/09/25 14:01
Sodium 141 mmol/L (135-145) 01/10/25 03:58
Potassium 5.1 mmol/L (3.5-5.1) 01/10/25 03:58
BUN 18 mg/dl (9-20) 01/10/25 03:58
Creatinine 0.9 mg/dL (0.7-1.3) 01/10/25 03:58
Glucose 105 mg/dl (70-99) H 01/10/25 03:58
Vital Signs and I&O:
Vital Signs
Temp Pulse Resp BP Pulse Ox
98.2 F 66 16 86/55 94
01/10/25 12:00 01/10/25 14:00 01/10/25 14:00 01/10/25 14:00 01/10/25 12:00
Vital Signs
Temp Pulse Resp BP Pulse Ox
98.2 F 66 16 86/55 94
01/10/25 12:00 01/10/25 14:00 01/10/25 14:00 01/10/25 14:00 01/10/25 12:00
Intake & Output
01/08/25 01/09/25 01/10/25 01/11/25
06:59 06:59 06:59 06:59
Intake Total 576 / 576 960 / 960 548.6 / 560.9 576.1 / 576.1
Output Total 1475 / 1475 310 / 310
Balance 576 / 576 960 / 960 -926.4 / -914.1 266.1 / 266.1
Physical Exam
Physical Exam
GEN: No distress,A+O x 3
HEENT: mmm
LUNGS: CTA b/l, no wheezes/rales
CV: Reg, S1/S2, no murmur
EXT: No cyanosis, clubbing, edema
SKIN: Warm, pink, dry. No rash
[2025-01-10 15:48] LABS: Hematocrit 30.1 % (39.0-52.0); Hemoglobin 10.6 g/dL (13.0-18.0); Mean Corp Hgb Conc. 35.2 g/dL (33.0-37.0); Mean Corpuscular Hgb 32.3 pg (27.0-31.0); Mean Corpuscular Volume 91.8 fL (80.0-94.0); Mean Platelet Volume 11.2 fL (7.4-10.4); Platelet Count 157 10^3/uL (130-400); Red Blood Cell Count 3.28 10^6/uL (4.70-6.10); Red Cell Dist. Width 13.2 % (11.5-14.5); White Blood Cell Count 19.7 10^3/uL (4.8-10.8)
--- NOTE | 2025-01-10 16:40 | PTCARENOTE ---
VS obtained, assessment stable. Perusing menu. Patient able to void 100ml adria urine - bladder scanned for PVR, approx 85ml. to bedside for visit.
--- NOTE | 2025-01-10 20:00 | PTCARENOTE ---
Received pt from [facility]. pt is POD1 from CABGx5 and HENOK clip with Dr. Hernandez. pt is resting in bed, AAOx4, states pain is 7/10, see MAR. NSR on monitor, ongoing low BP with SBP in 90s, pt is currently asymptomatic. heart sounds audible, rub
present, right radial, left ulnar, b/l DP pulses all palpable, trace generalized edema, +1 left hand edema. lungs diminished at b/l bases, spo2 94% on 2LNC, x2 MS and r/l pleural CT to -20 wall suction, no air leaks, no tidaling, no crepitus. +BS x4
quadrants, abdomen soft, non tender. pt voiding but low urine output, last void was 1630. 500ml LR bolus ordered, BMP ordered. Will bladder scan pt at 2200 if they no void by then. pt cleaned with CHG wiped, new gown and new tele leads changed. call
funk within reach.
[2025-01-10] MEDS: MYLICON 160 MG PO (20:08)
[2025-01-10] MEDS: LR 500 IV (20:08)
[2025-01-10 20:40] LABS: Blood Urea Nitrogen 27 mg/dl (9-20); Calcium 8.4 mg/dl (8.4-10.2); Carbon Dioxide 26 mmol/L (22-30); Chloride 100 mmol/L (98-107); Estimated Creatinine Clearance 65 ml/min; Glucose 174 mg/dl (70-99); Potassium 4.4 mmol/L (3.5-5.1); Sodium 131 mmol/L (135-145); eGFR > 60.00
[2025-01-10] MEDS: FLEXBUMIN 50 IV (20:59)
--- NOTE | 2025-01-10 22:00 | PTCARENOTE ---
at 2200 pt voided 200mls of dark yellow urine. post void bladder scan showed 116mls of urine. CVPA made aware.
[2025-01-11] VITALS (34 sets, daily range): BP systolic 83–134; BP diastolic 49–81; PULSE 80; O2SAT 94–96; BMI 29.9
--- NOTE | 2025-01-11 | PTCARENOTE ---
Pt assessment unchanged. 25% albumin given. on going pain management. call funk within reach. will continue to monitor.
--- NOTE | 2025-01-11 03:06 | W.PN.CT ---
Today's Communication / Plan
-
-pod #2
-no significant issues overnight, in nsr
-low BP 80s-90s postop - started on Midodrine, holding BB
-low UO- monitor. Got 500 LR in 24 hrs, started 25% Albumin
-CT output: 2 meds 30/140, 2 pleur 30/320 in 12/24 hrs
-follow Cr- 0.9 today (1.1 on 01/10 and 0.7 preop)
-current meds (ASA, Plavix, Crestor, Amio, Norvasc for radial graft, Midodrine tid, Feosol, vit C, Protonix)
-encourage IS, OOB
Assessment / Plan
-
Assessment:
-S/P Median sternotomy/ CABG x 5 (EILEEN to LAD, GSV to D2, GSV to OM1, RA to OM2, GSV to RPDA)/Endoscopic harvest/prep of RLE GSV/Endoscopic harvest/prep of L RA/ELAA (40mm AtriClip), by Dr. Hernandez, 01/09/25, pod#2
-Severe 3v CAD
-Hx CAD S/P PCI with SETH to mid circ, 09/2017
-NSTEMI (peak trop 4.31)
-[place]
-LVEF 50-55%, improved to 55-60% postop per intraop BRYSON
-Mild AI
-Mild MR
-Mild TR
-HTN
-HLD
-Left hand abscess/cellulitis S/p I&D
-Acute postop blood loss/Anemia (stable without PRBC's)
-Intraop coagulopathy/thrombocytopenia (transfused 1 {5pk} plts)
-Acute postop atelectasis
-Acute postop hypovolemia with subsequent hypervolemia
-Acute postop EKG changes c/w acute pericarditis, +rub on auscultation
Discussed patient care with: Nursing and Care Team
Subjective
Procedure
S/P Median sternotomy/ CABG x 5 (EILEEN to LAD, GSV to D2, GSV to OM1, RA to OM2, GSV to RPDA)/Endoscopic harvest/prep of RLE GSV/Endoscopic harvest/prep of L RA/ELAA (40mm AtriClip), by Dr. Hernandez, 01/09/25
-
Date of Service: January 11, 2025
Objective Data
-
PT 15.5 Sec (11.4-14.6) H 01/10/25 03:58
INR 1.20 01/10/25 03:58
APTT 31.7 Sec (23.4-35.0) 01/09/25 14:01
Vital Signs
Vital Signs
Temp Pulse Resp BP Pulse Ox
97.9 F 76 16 90/62 96
01/11/25 00:00 01/11/25 00:20 01/11/25 00:00 01/11/25 00:00 01/11/25 00:00
CT Intake/Output/Weight
01/10/25 01/10/25 01/11/25
06:59 18:59 06:59
Intake Total 548.6 / 560.9 856.1 / 856.1
Output Total 875 / 1475 500 / 740 240 / 740
Balance -326.4 / -914.1 356.1 / 116.1 -240 / 116.1
SaO2: 96
Physical Exam
-
General: Awake and AOx3
Cardiovascular: Regular rate & rhythm, No Murmurs and Rub
Respiratory: Decreased Breath Sounds
Sternum: Stable
Incision: Clean, Dry and Intact
Extremities: Edema +1 (b/l. 2+DPs b/l)
Abdomen: soft, nontender, nondistended, + bowel sounds
Data Reviewed
-
Lab Results: Results Reviewed
Medications: Active Meds Reviewed
Chest X-Ray: Report Reviewed and Image Reviewed
ECG: Report Reviewed and Image Reviewed
--- NOTE | 2025-01-11 04:00 | PTCARENOTE ---
Pt assessment unchanged. NSR on monitor. VSS. second dose of 25% albumin given. labs drawn and sent. pt voided 250mls of dark urine. PVR was 68mls. continued pain management. call funk within reach.
[2025-01-11] MEDS: FLEXBUMIN 50 IV ×3 (04:04→12:45)
[2025-01-11] MEDS: ROXICODONE 5 MG PO ×2 (04:19→19:56)
[2025-01-11 04:25] LABS: Hematocrit 25.6 % (39.0-52.0); Hemoglobin 9.2 g/dL (13.0-18.0); Mean Corp Hgb Conc. 35.9 g/dL (33.0-37.0); Mean Corpuscular Hgb 32.7 pg (27.0-31.0); Mean Corpuscular Volume 91.1 fL (80.0-94.0); Mean Platelet Volume 11.1 fL (7.4-10.4); Platelet Count 133 10^3/uL (130-400); Red Blood Cell Count 2.81 10^6/uL (4.70-6.10); Red Cell Dist. Width 13.2 % (11.5-14.5); White Blood Cell Count 15.1 10^3/uL (4.8-10.8)
[2025-01-11 04:48] LABS: Blood Urea Nitrogen 25 mg/dl (9-20); Calcium 8.1 mg/dl (8.4-10.2); Carbon Dioxide 28 mmol/L (22-30); Chloride 100 mmol/L (98-107); Estimated Creatinine Clearance 79 ml/min; Glucose 131 mg/dl (70-99); Magnesium 1.8 mg/dl (1.6-2.3); Potassium 4.4 mmol/L (3.5-5.1); Sodium 132 mmol/L (135-145); eGFR > 60.00
[2025-01-11] MEDS: TYLENOL 1000 MG PO ×3 (06:15→21:22)
[2025-01-11] MEDS: TORADOL 15 MG IV ×2 (06:15→07:57)
[2025-01-11] MEDS: FLEXERIL 5 MG PO ×2 (06:15→15:13)
[2025-01-11] MEDS: CALCIUM GLUCONATE 100 IV (06:41)
[2025-01-11] MEDS: PLAVIX 75 MG PO (07:55)
[2025-01-11] MEDS: CRESTOR 40 MG PO (07:56)
[2025-01-11] MEDS: LOW STRENGTH ASPIRIN 81 MG PO (07:56)
[2025-01-11] MEDS: FEOSOL 325 MG PO (07:56)
[2025-01-11] MEDS: NEURONTIN 100 MG PO ×3 (07:56→21:22)
[2025-01-11] MEDS: MAGNESIUM OXIDE 500 MG PO ×2 (07:56→19:50)
[2025-01-11] MEDS: VITAMIN C 500 MG PO (07:56)
[2025-01-11] MEDS: ProAmatine 10 MG PO ×3 (07:56→17:00)
[2025-01-11] MEDS: PROTONIX 40 MG PO (07:56)
[2025-01-11] MEDS: SENOKOT-S 1 TABLET PO ×2 (07:56→19:51)
[2025-01-11] MEDS: PACERONE 200 MG PO ×3 (07:57→21:22)
[2025-01-11] MEDS: BACTROBAN 2% OINTMENT 1 APPLIC NASAL ×2 (07:58→19:50)
--- NOTE | 2025-01-11 08:00 | PTCARENOTE ---
~0700: Handoff report received from nightshift RN. Pt OOB in chair at this time. Pt Aox4, NSR 80s on tele + rub noted, 2L NC satting 97%, lungs diminished at the bases. PT c/o pain, toradol ordered by Sadie SERVICE ADVISOR and given, midodrine also increased
per Sadie SERVICE ADVISOR, SBPs remain soft 80s-90s at this time. I/Os charted. Sternal incision covered with aquacel dressing, CDI. 4 Chest tubes to -20 suction present at this time with minimal serosanguenous drainage, no airleak or crepitus noted at this
time, dressing CD- per Dr. Hernandez, Chest tubes can be removed today. L radial graft site SAP BASIS ADMINISTRATOR with skin glue, site approx. with no drainage, R leg site approx with skin glue and FILIPPO, R groin site FILIPPO and soft. R radial ART line site soft, dressing
CDI. R IJ cordis present, dressing CDI with KVO infusing.
~0800: Pt back to bed with Ax2. All chest tubes removed per Dr. Hernandez, patient tolerated. New dressing applied, site CDI. Reglan ordered by Sadie for pt c/o hiccups. IS encouraged. All needs met at this time, call funk within reach.
[2025-01-11] MEDS: LIDOCAINE 4% PATCH TOPICAL (09:01)
[2025-01-11] MEDS: NORVASC 2.5 MG PO (10:08)
--- NOTE | 2025-01-11 11:10 | CM ---
CM following for DC planning needs.
Pt. is POD#[address] Surgery[address]
Attempted to meet w/ patient; patient was sleeping. Will re-attempt another time.
Antic. DC to home with CT Transitional Care RN.
CM to follow.
--- NOTE | 2025-01-11 12:00 | PTCARENOTE ---
Patient OOB to chair with Ax2. Patient states feeling much better since the Chest tubes being removed. Family at bedside. Pt ambulated with cardiac rehab in the halls, tolerated well. Pressures soft with SBP 90s, albumin 25% 50cc given per order.
All needs met at this time, call funk within reach.
[2025-01-11] MEDS: REGLAN PO (12:08)
[2025-01-11] MEDS: NSS 500 IV (13:18)
[2025-01-11] MEDS: REGLAN 10 MG PO (13:18)
[2025-01-11] MEDS: LASIX 40 MG IV (13:47)
[2025-01-11] MEDS: KCL 20 MEQ PO (13:48)
[2025-01-11] MEDS: CORDARONE 103 MG IV ×2 (15:08→20:39)
--- NOTE | 2025-01-11 15:15 | W.PN.CARDCBS ---
Addendum entered and electronically signed by Maggi June MD 01/11/25 16:43:
I saw and examined the patient.
The Ceo's note was reviewed and I agree with the note.
Comment: P patient is doing well, does complain of intermittent lightheadedness with soft blood pressures. Out of bed into a chair
Vital signs and lab work reviewed. Patient is well-appearing, in no acute distress, out of bed into a chair, regular rate, normal S1 and S2, pericardial rub over left lower sternal border, no murmurs or gallops, sternotomy wound is dressed with
dressing that is clean, dry and intact, decreased breath sounds at bilateral bases, abdomen is soft, nontender, nondistended with active bowel sounds, warm extremities with trace lower extremity edema.
Plan:
-Presented with chest tightness. Ruled in for NSTEMI with troponin peaking at 4.3 and trending down thereafter.
-Cardiac catheterization 01/05/2025 revealed multivessel CAD. Now s/p CABG x 5 (EILEEN to LAD, GSV to D2, GSV to OM1, RA to OM2, GSV to RPDA) 01/09/2025 w/ Dr. Hernandez
- Extubated on January 09, 2025 around 5 PM.
- He is needing midodrine along with amlodipine to prevent radial artery vasospasm. Continue to monitor blood pressures closely. Holding home beta-theresa for now.
- Post-op EKG sinus rhythm with diffuse ST elevations concerning for possible postoperative pericarditis.
- Patient received 1 unit of platelets intraoperatively. Hemoglobin stable. Continue to monitor closely.
-Continue aspirin, plavix. Received amiodarone bolus along with p.o. amiodarone.
-Continue crestor 40mg daily. LDL 54.
-Continue post-op care.
Maggi June MD, [facility], [facility]
Original Note:
Today's Communication / Plan
-
continue post op care
follow BPs
Impression / Plan
-
Primary Presiding Judge: Dr. AISHWARYA Davey
Assessment:
Presented with CP
NSTEMI
CAD
s/p mid circ SETH 09/2017
MV CAD by cath 01/05/25
s/p CABG x 5 (EILEEN to LAD, GSV to D2, GSV to OM1, RA to OM2, GSV to RPDA) 01/09/2025
s/p ELAA 01/09/2025
HTN
HLD
Back pain
Stress echo 11/2017: Negative for ischemia with normal EF, suboptimal evaluation, inferior segment/translational motion with no clear stress-induced ischemia
Echo 2016: normal
Echo 01/05/2025: EF 50 to 55%, inferoseptal and inferolateral hypokinesis, mild concentric LVH, mild MR, mild AR, mild TR, PAP 19 mmHg
Plan:
-Presented with chest tightness, ruled in for NSTEMI with troponin peaking at 4.3. Cardiac catheterization 01/05/2025 revealed multivessel CAD. Now s/p CABG x 5 (EILEEN to LAD, GSV to D2, GSV to OM1, RA to OM2, GSV to RPDA) 01/09/2025 w/ Dr. Hernandez
-BPs low but stable. holding BB. continue low dose norvasc for radial graft. continue midodrine, wean as able
-he is for amio bolus today per CT as HRs felt to be elevated in SR. currently in 80-90s on tele. continue amio 200mg po TID
-CTs now out. wean supp O2 as able
-with evidence of pericarditis by EKG, continue pain mgmt
-continue asa, plavix given NSTEMI presentation. hgb 9.2
-Continue crestor 40mg daily. LDL 54.
-Continue post-op care
-d/w nursing
Progress Note - Presiding Judge
Subjective
Date of Service: January 11, 2025
reports remains with some discomfort. easier to take deep breaths now that CTs out
Objective
Labs:
01/11/25 04:15
01/11/25 04:15
Labs
Hgb 9.2 g/dL (13.0-18.0) L 01/11/25 04:15
Hct 25.6 % (39.0-52.0) L 01/11/25 04:15
Plt Count 133 10^3/uL (130-400) 01/11/25 04:15
PT 15.5 Sec (11.4-14.6) H 01/10/25 03:58
INR 1.20 01/10/25 03:58
APTT 31.7 Sec (23.4-35.0) 01/09/25 14:01
Sodium 132 mmol/L (135-145) L 01/11/25 04:15
Potassium 4.4 mmol/L (3.5-5.1) 01/11/25 04:15
BUN 25 mg/dl (9-20) H 01/11/25 04:15
Creatinine 0.9 mg/dL (0.7-1.3) 01/11/25 04:15
Glucose 131 mg/dl (70-99) H 01/11/25 04:15
Vital Signs and I&O:
Vital Signs
Temp Pulse Resp BP Pulse Ox
98.2 F 91 18 96/62 96
01/11/25 13:00 01/11/25 14:37 01/11/25 13:00 01/11/25 14:37 01/11/25 13:00
Vital Signs
Temp Pulse Resp BP Pulse Ox
98.2 F 91 18 96/62 96
01/11/25 13:00 01/11/25 14:37 01/11/25 13:00 01/11/25 14:37 01/11/25 13:00
Intake & Output
01/09/25 01/10/25 01/11/25 01/12/25
07:59 07:59 07:59 07:59
Intake Total 960 / 960 560.9 / 813.2 853.8 / 863.8
Output Total 1475 / 1585 1030 / 1030 150 / 150
Balance 960 / 960 -914.1 / -771.8 -176.2 / -166.2 -140 / -140
Physical Exam
Physical Exam
GEN: No distress, awake, alert, oriented x3. sitting in chair. on supp O2
HEENT: supple, anicteric, mmm, eomi
LUNGS: Diminished BS B/L, no wheezes
CV: Reg, S1/S2, no murmur
ABD: soft, BS+, NT/ND
EXT: No cyanosis, clubbing. trace edema of B/L LE
NEURO: Gross non-focal
SKIN: Warm, pink, dry. No rash. Sternotomy dressing c/d/i.
--- NOTE | 2025-01-11 16:00 | PTCARENOTE ---
Pt OOB in chair at this time. 40 lasix and midodrine given per order. Pt c/o pain, PRN felxiril given. Pt HR NSR with PACs 80s-100s at this time, Sadie CLAYTON made aware, Amio bolus given per order. 2L NC 94%. All needs met at this time, call funk
within reach.
--- NOTE | 2025-01-11 19:00 | PTCARENOTE ---
Patient OOB in chair in stable condition, VSS at this time. handoff report given to nightshift RN.
[2025-01-11] MEDS: TOPROL XL 12.5 MG PO (19:50)
[2025-01-11] MEDS: ZOFRAN 4 MG IV (19:58)
[2025-01-11] MEDS: MYLICON 80 MG PO (20:11)
--- NOTE | 2025-01-11 20:15 | PTCARENOTE ---
Received pt from [facility]. pt is POD2 from CABGx5 and HENOK clip with Dr. Hernandez. pt is resting in chair, assist x1 to restroom and then back to bed, AAOx4, states pain is 7/10, see MAR. NSR to Afib at 2000 ,VSS. heart sounds audible, right radial,
left ulnar, b/l DP pulses all palpable, trace generalized edema, +1 left hand edema. lungs diminished at b/l bases, spo2 95% on 2LNC. Hyperactive BS x4 quadrants, pt complains of gas/bloating, abdomen soft, non tender but uncomfortable. pt voiding
clear yellow urine. call funk within reach.
[2025-01-11] MEDS: CORDARONE 518 MG IV (20:59)
[2025-01-11] MEDS: REGLAN 10 MG IV (21:59)
[2025-01-12] VITALS (12 sets, daily range): BP systolic 89–121; BP diastolic 58–77; PULSE 78; O2SAT 92; BMI 29.8
--- NOTE | 2025-01-12 | PTCARENOTE ---
Pt assessment unchanged. Pt converted back to NSR from Afib ~2230. VSS. pt resting comfortably. call funk within reach. will continue to monitor.
--- NOTE | 2025-01-12 04:00 | PTCARENOTE ---
pt assessment unchanged. SB/SR. resting comfortable in bed.
[2025-01-12 05:04] LABS: Hematocrit 24.2 % (39.0-52.0); Hemoglobin 8.6 g/dL (13.0-18.0); Mean Corp Hgb Conc. 35.5 g/dL (33.0-37.0); Mean Corpuscular Hgb 32.1 pg (27.0-31.0); Mean Corpuscular Volume 90.3 fL (80.0-94.0); Mean Platelet Volume 11.7 fL (7.4-10.4); Platelet Count 121 10^3/uL (130-400); Red Blood Cell Count 2.68 10^6/uL (4.70-6.10); Red Cell Dist. Width 13.2 % (11.5-14.5); White Blood Cell Count 12.5 10^3/uL (4.8-10.8)
--- NOTE | 2025-01-12 05:20 | W.PN.CT ---
Today's Communication / Plan
-
-pod #3
-c/o nausea since lunch yesterday, mildly distended abdomen, + flatus - got Simethicone, Zofran and Reglan. Checked abdominal XRY this am. Consider MOM, ambulate. Started Reglan tid
-drips: Amio 0.5
-went into a-fib last night 120s at 7:30 pm, got Amio bolus and drip and converted to nsr @~10:30pm
-diuresed with iv Lasix on 01/11 (UO 425+/1800+)- continue
-Cr stable - 0.8 today (0.7 preop)
-current meds (ASA, Plavix, Crestor, Amio, Midodrine 10 tid, Toprol 12.5 bid, Norvasc for radial graft, Feosol, vit C, Reglan, Protonix)
-encourage IS, ambulate
Assessment / Plan
-
Assessment:
-S/P Median sternotomy/ CABG x 5 (EILEEN to LAD, GSV to D2, GSV to OM1, RA to OM2, GSV to RPDA)/Endoscopic harvest/prep of RLE GSV/Endoscopic harvest/prep of L RA/ELAA (40mm AtriClip), by Dr. Hernandez, 01/09/25, pod#3
-Severe 3v CAD
-Hx CAD S/P PCI with SETH to mid circ, 09/2017
-NSTEMI (peak trop 4.31)
-[place]
-LVEF 50-55%, improved to 55-60% postop per intraop BRYSON
-Mild AI
-Mild MR
-Mild TR
-HTN
-HLD
-Left hand abscess/cellulitis S/p I&D
-Acute postop blood loss/Anemia (stable without PRBC's)
-Intraop coagulopathy/thrombocytopenia (transfused 1 {5pk} plts)
-Acute postop atelectasis
-Acute postop hypovolemia with subsequent hypervolemia
-Acute postop EKG changes c/w acute pericarditis, +rub on auscultation
-Acute postop paroxysmal a-fib on 01/11 - tx with Amio bolus and drip
Discussed patient care with: Nursing and Care Team
Subjective
Procedure
S/P Median sternotomy/ CABG x 5 (EILEEN to LAD, GSV to D2, GSV to OM1, RA to OM2, GSV to RPDA)/Endoscopic harvest/prep of RLE GSV/Endoscopic harvest/prep of L RA/ELAA (40mm AtriClip), by Dr. Hernandez, 01/09/25
-
Date of Service: January 12, 2025
Objective Data
-
Lab Results
01/12/25 04:34
PT 15.5 Sec (11.4-14.6) H 01/10/25 03:58
INR 1.20 01/10/25 03:58
APTT 31.7 Sec (23.4-35.0) 01/09/25 14:01
Vital Signs
Vital Signs
Temp Pulse Resp BP Pulse Ox
97.8 F 76 16 129/76 93
01/12/25 04:00 01/12/25 00:00 01/12/25 04:00 01/11/25 23:56 01/12/25 04:00
CT Intake/Output/Weight
01/11/25 01/11/25 01/12/25
06:59 18:59 06:59
Intake Total 30 / 30
Output Total 510 / 1010 1395 / 1820 425 / 1820
Balance -510 / -153.9 -1365 / -1790 -425 / -1790
SaO2: 93
Physical Exam
-
General: Awake and AOx3
Cardiovascular: Regular rate & rhythm, No Murmurs and No Rub
Respiratory: Decreased Breath Sounds
Sternum: Stable
Incision: Clean, Dry and Dressing Intact
Extremities: Edema +1
Abdomen: mildly distended, c/o nausea since lunch, decreased bowel sounds, + flatus
Data Reviewed
-
Lab Results: Results Reviewed
Medications: Active Meds Reviewed
Chest X-Ray: Report Reviewed and Image Reviewed
ECG: Report Reviewed and Image Reviewed
[2025-01-12 05:21] LABS: Blood Urea Nitrogen 18 mg/dl (9-20); Calcium 8.1 mg/dl (8.4-10.2); Carbon Dioxide 26 mmol/L (22-30); Chloride 100 mmol/L (98-107); Estimated Creatinine Clearance 89 ml/min; Glucose 130 mg/dl (70-99); Magnesium 2.1 mg/dl (1.6-2.3); Potassium 4.4 mmol/L (3.5-5.1); Sodium 133 mmol/L (135-145); eGFR > 60.00
[2025-01-12] MEDS: TYLENOL 1000 MG PO ×3 (06:30→23:32)
[2025-01-12] MEDS: LIDOCAINE 4% PATCH 1 PATCH TOPICAL (08:09)
[2025-01-12] MEDS: MILK OF MAGNESIA 30 ML PO (08:09)
[2025-01-12] MEDS: FEOSOL 325 MG PO (08:10)
[2025-01-12] MEDS: MAGNESIUM OXIDE 500 MG PO ×2 (08:10→20:17)
[2025-01-12] MEDS: NEURONTIN 100 MG PO ×3 (08:10→23:31)
[2025-01-12] MEDS: SENOKOT-S 1 TABLET PO (08:10)
[2025-01-12] MEDS: TOPROL XL 12.5 MG PO (08:10)
[2025-01-12] MEDS: LOW STRENGTH ASPIRIN 81 MG PO (08:10)
[2025-01-12] MEDS: PACERONE 200 MG PO ×3 (08:10→23:31)
[2025-01-12] MEDS: CRESTOR 40 MG PO (08:10)
[2025-01-12] MEDS: PROTONIX 40 MG PO (08:10)
[2025-01-12] MEDS: PLAVIX 75 MG PO (08:10)
[2025-01-12] MEDS: ProAmatine 10 MG PO ×2 (08:10→12:23)
[2025-01-12] MEDS: REGLAN 10 MG PO ×3 (08:11→17:23)
[2025-01-12] MEDS: VITAMIN C 500 MG PO (08:11)
[2025-01-12] MEDS: NORVASC 2.5 MG PO (08:11)
[2025-01-12] MEDS: BACTROBAN 2% OINTMENT 1 APPLIC NASAL ×2 (08:16→20:17)
[2025-01-12] MEDS: KCL 20 MEQ PO (08:16)
[2025-01-12] MEDS: LASIX 40 MG IV ×2 (08:16→15:57)
[2025-01-12] MEDS: TORADOL 15 MG IV (09:22)
--- NOTE | 2025-01-12 09:51 | PTCARENOTE ---
assumed care of pt from previous shift RN, sinus rhythm on tele, VSS, + peripheral pulses, trace edema to lower extremities. Lungs diminished, pox 93% on RA, coughing and deep breathing encouraged. +bs, pt c/o of constipation and nausea, MOM
administered as ordered. Surgical sites stable. Right IJ cordis w KVO and amiodarone infusing, PIV flushes easily. plan of care reviewed w the pt and questions encouraged.
--- NOTE | 2025-01-12 10:27 | PN.CDI ---
CDI
- -
CDI:
Physician Documentation Request
Admit Date: 01/04/25 15:[address] Surgery,
Patient admitted for CAD.
Laboratory Tests
01/10/25 01/11/25 01/12/25
19:59 04:15 04:34
Sodium 131 L D 132 L 133 L
Based on the above, could you clarify in the progress notes, the appropriate diagnosis, if significant, that supports the above abnormalities and additional evaluation, monitoring and/or treatment rendered:
Hyponatremia
Abnormal lab value insignificant
Other
Use of terms such as suspected, likely, concern for, or probable (associated with a specific diagnosis that is being evaluated, monitored, or treated as if it exists) are acceptable and can be coded in the inpatient setting, when documented at the
time of discharge.
Thank you,
Michaela Dominique RN, BSN
CDI Specialist
Available via [employer]
Please use your independent medical judgment in providing your response.
--- NOTE | 2025-01-12 10:55 | W.PN.CARDCBS ---
Addendum entered and electronically signed by Michael Davey MD 01/12/25 19:26:
Patient now postop day 3 CABG x 5. Some atrial fibrillation, some nausea mild hypotension, overall looks well
Currently on IV amiodarone, receiving diuretics, still with Cordis
104/65, pulse 81, sitting in chair, overall appears comfortable, clear, soft friction rub, regular rate and rhythm, no obvious murmurs, benign extremities without significant edema
Labs reviewed. Hemoglobin 8.6, BUN/creatinine are 10 and 0.8, potassium 4.4, chloride 133
Chest x-ray with mild prominence of pulmonary vasculature and some blunting in bases
Impression:
NSTEMI
CAD
s/p mid circ SETH 09/2017
MV CAD by cath 01/05/25
s/p CABG x 5 (EILEEN to LAD, GSV to D2, GSV to OM1, RA to OM2, GSV to RPDA) 01/09/2025s/p
HENOK clip 01/09/2025
HTN
HLD
Postop paroxysmal atrial fibrillation
Plan:
Overall doing well postop day 3 despite brief paroxysmal atrial fibrillation
Appreciate efforts of CT surgery
We will continue to follow.
Original Note:
Today's Communication / Plan
-
Continue postop care
Ambulate/IS as able
Follow rhythm
Impression / Plan
-
Primary Stamp Classifier: Dr. AISHWARYA Davey
Assessment:
Presented with CP
NSTEMI
CAD
s/p mid circ SETH 09/2017
MV CAD by cath 01/05/25
s/p CABG x 5 (EILEEN to LAD, GSV to D2, GSV to OM1, RA to OM2, GSV to RPDA) 01/09/2025
s/p ELAA 01/09/2025
HTN
HLD
Back pain
Stress echo 11/2017: Negative for ischemia with normal EF, suboptimal evaluation, inferior segment/translational motion with no clear stress-induced ischemia
Echo 2017: normal
Echo 01/05/2025: EF 50 to 55%, inferoseptal and inferolateral hypokinesis, mild concentric LVH, mild MR, mild AR, mild TR, PAP 19 mmHg
Plan:
- Presented with chest tightness, ruled in for NSTEMI with troponin peaking at 4.3. Cardiac catheterization 01/05/2025 revealed multivessel CAD. Now s/p CABG x 5 (EILEEN to LAD, GSV to D2, GSV to OM1, RA to OM2, GSV to RPDA) 01/09/2025 w/ Dr. Hernandez
- Reporting some nausea overnight. Abdominal x-ray without evidence of intestinal obstruction/ileus. Continue bowel regimen
- Had approximately 2 hours of atrial fibrillation overnight. Remains on IV amiodarone and p.o. amiodarone and in normal rhythm at present
- Blood pressures remain low but stable. Holding beta-theresa. Continue Norvasc 2.5 mg daily for radial graft. Currently on midodrine 10 mg 3 times daily, wean as able
- Wean supplemental oxygen
- Continue diuresis
- continue asa, plavix given NSTEMI presentation. hgb 8.6
- Continue crestor 40mg daily. LDL 54.
- Continue post-op care, out of bed/ambulate as able
Progress Note - Stamp Classifier
Subjective
Date of Service: January 12, 2025
Reports feeling tired. Also reports nausea
Objective
Labs:
01/12/25 04:34
01/12/25 04:34
Labs
Hgb 8.6 g/dL (13.0-18.0) L 01/12/25 04:34
Hct 24.2 % (39.0-52.0) L 01/12/25 04:34
Plt Count 121 10^3/uL (130-400) L 01/12/25 04:34
PT 15.5 Sec (11.4-14.6) H 01/10/25 03:58
INR 1.20 01/10/25 03:58
APTT 31.7 Sec (23.4-35.0) 01/09/25 14:01
Sodium 133 mmol/L (135-145) L 01/12/25 04:34
Potassium 4.4 mmol/L (3.5-5.1) 01/12/25 04:34
BUN 18 mg/dl (9-20) 01/12/25 04:34
Creatinine 0.8 mg/dL (0.7-1.3) 01/12/25 04:34
Glucose 130 mg/dl (70-99) H 01/12/25 04:34
Vital Signs and I&O:
Vital Signs
Temp Pulse Resp BP Pulse Ox
99.1 F 81 16 98/65 93
01/12/25 08:00 01/12/25 09:00 01/12/25 08:00 01/12/25 08:02 01/12/25 10:24
Vital Signs
Temp Pulse Resp BP Pulse Ox
99.1 F 81 16 98/65 93
01/12/25 08:00 01/12/25 09:00 01/12/25 08:00 01/12/25 08:02 01/12/25 10:24
Intake & Output
01/10/25 01/11/25 01/12/25 01/13/25
07:59 07:59 07:59 07:59
Intake Total 560.9 / 813.2 853.8 / 863.8 10 10
Output Total 1475 / 1585 1030 / 1030 2050 / 2650 600 / 600
Balance -914.1 / -771.8 -176.2 / -166.2 -2030 / -2620 -590 / -590
Physical Exam
Physical Exam
GEN: No distress, awake, alert, oriented x3. sitting in chair. on supp O2
HEENT: supple, anicteric, mmm, eomi
LUNGS: Few crackles bilaterally, no wheezes
CV: Reg, S1/S2, no murmur
ABD: soft, BS+, NT/ND
EXT: No cyanosis, clubbing. 1+ edema of B/L LE
NEURO: Gross non-focal
SKIN: Warm, pink, dry. No rash. Sternotomy dressing c/d/i.
--- NOTE | 2025-01-12 11:10 | PTCARENOTE ---
pt tolerated CR, sinus rhythm maintained on tele.
--- NOTE | 2025-01-12 12:26 | CM ---
CM following for DC planing needs.
Met w/ patient's spouse at bedside. Pt. was in the restroom. Per spouse and RN, patient doing well.
Reviewed role of CM and anticipated DC plan for home w/ CT Transitional Care RN.
CM to cont. to follow.
--- NOTE | 2025-01-12 15:05 | W.PN.UPDATE ---
Update Note
Progress Note Update
CDI query:
Hyponatremia
[2025-01-12] MEDS: NSS IV (15:57)
[2025-01-12] MEDS: KCL 40 MEQ PO (15:57)
--- NOTE | 2025-01-12 16:02 | PTCARENOTE ---
VSS, sinus rhythm on tele.
[2025-01-12] MEDS: ProAmatine 5 MG PO (17:23)
--- NOTE | 2025-01-12 19:55 | PTCARENOTE ---
Report from COLE Tomlinson. Walking rounds done. VS done. Pt helped to BR to have moderate loose/soft stool. Dk brown. Pt voided clear, yellow urine. Pt helped back to bed. Transient lightheadedness x 1 with sitting. Oriented x 4. Speech clear. Equal
strength x 4. Placed on 1 L in bed. Sats 92% in bed on room air. 1L, sats 96%. BBS present. CDB and IS encouraged. Audible heart tones. Pt in SR. Amio gtt infusing until bag complete, per PA. BP 99-96 systolic. HR 70-80's. For pulse and wound
assessments, see flowsheet. Belly soft, nontender. Normoactive bs. Ongoing plan of care.
[2025-01-12] MEDS: SENOKOT-S PO (20:17)
[2025-01-12] MEDS: ZOFRAN 4 MG IV (23:28)
--- NOTE | 2025-01-12 23:45 | PTCARENOTE ---
Helped to BR to have moderate loose BM, voided clear, yellow urine. C/O nausea. Zofran 4 mg IV x 1. Amio gtt d/c. CHG bath, face cleanse, and mouth care done. Ongoing plan of care.
[2025-01-13] VITALS (12 sets, daily range): BP systolic 78–127; BP diastolic 49–88; PULSE 81; O2SAT 93; BMI 29.4
--- NOTE | 2025-01-13 04:15 | PTCARENOTE ---
Labs drawn and sent. VS done. Pt denies pain.
[2025-01-13 04:42] LABS: Hematocrit 24.1 % (39.0-52.0); Hemoglobin 8.4 g/dL (13.0-18.0); Mean Corp Hgb Conc. 34.9 g/dL (33.0-37.0); Mean Corpuscular Hgb 31.9 pg (27.0-31.0); Mean Corpuscular Volume 91.6 fL (80.0-94.0); Mean Platelet Volume 11.5 fL (7.4-10.4); Platelet Count 143 10^3/uL (130-400); Red Blood Cell Count 2.63 10^6/uL (4.70-6.10); Red Cell Dist. Width 13.2 % (11.5-14.5); White Blood Cell Count 10.2 10^3/uL (4.8-10.8)
[2025-01-13 05:08] LABS: Blood Urea Nitrogen 19 mg/dl (9-20); Calcium 7.9 mg/dl (8.4-10.2); Carbon Dioxide 28 mmol/L (22-30); Chloride 100 mmol/L (98-107); Estimated Creatinine Clearance 79 ml/min; Glucose 105 mg/dl (70-99); Magnesium 2.3 mg/dl (1.6-2.3); Potassium 4.3 mmol/L (3.5-5.1); Sodium 136 mmol/L (135-145); eGFR > 60.00
[2025-01-13] MEDS: TYLENOL 1000 MG PO ×3 (06:30→21:26)
--- NOTE | 2025-01-13 06:45 | W.PN.CT ---
Today's Communication / Plan
-
-pod #4
-no issues overnight
-nausea is better, + BMs
-diuresed with iv bid Lasix on 01/12 (UO 300+/2300+)- continue
-Cr stable - 0.9 today (0.7 preop)
-follow 2v-CXR
-current meds (ASA, Plavix, Crestor, Amio, Midodrine 5 tid, Toprol 12.5 qd, Norvasc for radial graft, Feosol, vit C, Reglan, Protonix)
-encourage IS, ambulate
-possible d/c soon
Assessment / Plan
-
Assessment:
-S/P Median sternotomy/ CABG x 5 (EIELEN to LAD, GSV to D2, GSV to OM1, RA to OM2, GSV to RPDA)/Endoscopic harvest/prep of RLE GSV/Endoscopic harvest/prep of L RA/ELAA (40mm AtriClip), by Dr. Hernandez, 01/09/25, pod#4
-Severe 3v CAD
-Hx CAD S/P PCI with SETH to mid circ, 09/2017
-NSTEMI (peak trop 4.31)
-[place]
-LVEF 50-55%, improved to 55-60% postop per intraop BRYSON
-Mild AI
-Mild MR
-Mild TR
-HTN
-HLD
-Left hand abscess/cellulitis S/p I&D
-Acute postop blood loss/Anemia (stable without PRBC's)
-Intraop coagulopathy/thrombocytopenia (transfused 1 {5pk} plts)
-Acute postop atelectasis
-Acute postop hypovolemia with subsequent hypervolemia
-Acute postop EKG changes c/w acute pericarditis, +rub on auscultation
-Acute postop paroxysmal a-fib on 01/11 - tx with Amio bolus and drip
-Acute postop hyponatremia
Discussed patient care with: Nursing and Care Team
Subjective
Procedure
S/P Median sternotomy/ CABG x 5 (EILEEN to LAD, GSV to D2, GSV to OM1, RA to OM2, GSV to RPDA)/Endoscopic harvest/prep of RLE GSV/Endoscopic harvest/prep of L RA/ELAA (40mm AtriClip), by Dr. Hernandez, 01/09/25
-
Date of Service: January 13, 2025
Objective Data
-
PT 15.5 Sec (11.4-14.6) H 01/10/25 03:58
INR 1.20 01/10/25 03:58
APTT 31.7 Sec (23.4-35.0) 01/09/25 14:01
Vital Signs
Vital Signs
Temp Pulse Resp BP Pulse Ox
98 F 71 16 116/68 96
01/12/25 23:01 01/13/25 02:00 01/12/25 23:01 01/12/25 23:31 01/13/25 02:52
CT Intake/Output/Weight
01/12/25 01/12/25 01/13/25
06:59 18:59 06:59
Intake Total 263.3 / 426.8 163.5 / 426.8
Output Total / 2069 1999 / 230 300 / 2300
Balance -675 / -2040 -1736.7 / -1873.2 -136.5 / -1873.2
SaO2: 96
Data Reviewed
-
Lab Results: Results Reviewed
Medications: Active Meds Reviewed
Chest X-Ray: Report Reviewed and Image Reviewed
ECG: Report Reviewed and Image Reviewed
[2025-01-13] MEDS: REGLAN 10 MG PO ×3 (07:58→16:06)
[2025-01-13] MEDS: ProAmatine 5 MG PO ×2 (07:58→13:10)
[2025-01-13] MEDS: LIDOCAINE 4% PATCH TOPICAL (08:00)
[2025-01-13] MEDS: LASIX 40 MG IV (08:28)
[2025-01-13] MEDS: NEURONTIN 100 MG PO ×3 (08:28→21:23)
[2025-01-13] MEDS: NORVASC 2.5 MG PO (08:28)
[2025-01-13] MEDS: CRESTOR 40 MG PO (08:28)
[2025-01-13] MEDS: LOW STRENGTH ASPIRIN 81 MG PO (08:28)
[2025-01-13] MEDS: PACERONE 200 MG PO ×2 (08:28→16:06)
[2025-01-13] MEDS: PROTONIX 40 MG PO (08:28)
[2025-01-13] MEDS: PLAVIX 75 MG PO (08:28)
[2025-01-13] MEDS: BACTROBAN 2% OINTMENT 1 APPLIC NASAL (08:30)
--- NOTE | 2025-01-13 08:48 | PTCARENOTE ---
Received pt from night monitor RN; NSR on monitor and VSS; RIJ Cordis and PIV x1 patent; Lungs diminished; positive bowel sounds; pt voiding yellow urine; +1 edema in left arm and trace in lower extremities; palpable pulses in radials and weak lower
extremity pulses; all surgical sites C/D/I; see nursing documentation for further details.
[2025-01-13] MEDS: SENOKOT-S PO ×2 (09:18→21:26)
[2025-01-13] MEDS: MAGNESIUM OXIDE PO (09:18)
[2025-01-13] MEDS: FEOSOL PO (09:18)
[2025-01-13] MEDS: VITAMIN C PO (09:19)
[2025-01-13] MEDS: ZOFRAN 4 MG IV (09:20)
[2025-01-13] MEDS: TOPROL XL 12.5 MG PO (10:20)
[2025-01-13] MEDS: KCL 20 MEQ PO (10:20)
[2025-01-13] MEDS: CALCIUM GLUCONATE 100 IV (11:32)
--- NOTE | 2025-01-13 11:32 | CM ---
CM following for DC planning needs.
Met w/ patient at bedside. Pt. POD#4. He reports that he is doing okay but still feels nauseous.
We reviewed DC Plan for home w/ CT Transitional Care RN.
Also reviewed post op MD appointments.
Will cont. to follow.
--- NOTE | 2025-01-13 12:19 | PTCARENOTE ---
NSR on monitor and VSS; assessment unchanged and pt resting comfortably in bed; RIJ Cordis removed per CT TRANSPORTATION PLANNING TECHNICIAN order.
[2025-01-13] MEDS: NSS IV (14:37)
--- NOTE | 2025-01-13 15:17 | W.PN.CARDCBS ---
Addendum entered and electronically signed by Adelso Colon DO 01/13/25 16:07:
I saw and examined the patient.
The Director Of Provider Relations's note was reviewed and I agree with the note.
Comment:
Patient resting comfortably in bed. Reporting mild discomfort at sternotomy site and RIJ site. Denies other cp, sob, palpitations, or weakness.
Tele SR/ST
GEN: No distress, awake, alert, oriented x3
HEENT: supple, anicteric, mmm
LUNGS: Few crackles bilaterally, no wheezes
CV: Reg, S1/S2, no murmur
ABD: soft, BS+, NT/ND
EXT: No cyanosis, clubbing. 1+ edema of B/L LE
NEURO: Gross non-focal
SKIN: Warm, pink, dry. No rash. Sternotomy dressing c/d/i.
A/P As below
Remains volume overloaded, continue IV diuresis
Resume GDMT as tolerated, monitor rhythm going forward; if increased AF burden may require OAC
Will follow
Original Note:
Today's Communication / Plan
-
continue post op care
follow rhythm
diurese
Impression / Plan
-
Primary General Utility Machine Operator: Dr. AISHWARYA Davey
Assessment:
Presented with CP
NSTEMI
CAD
s/p mid circ SETH 09/2017
MV CAD by cath 01/05/25
s/p CABG x 5 (EILEEN to LAD, GSV to D2, GSV to OM1, RA to OM2, GSV to RPDA) 01/09/2025
s/p ELAA 01/09/2025
Post op PAF
HTN
HLD
Back pain
Stress echo 11/2017: Negative for ischemia with normal EF, suboptimal evaluation, inferior segment/translational motion with no clear stress-induced ischemia
Echo 2017: normal
Echo 01/05/2025: EF 50 to 55%, inferoseptal and inferolateral hypokinesis, mild concentric LVH, mild MR, mild AR, mild TR, PAP 19 mmHg
Plan:
- Presented with chest tightness, ruled in for NSTEMI with troponin peaking at 4.3. Cardiac catheterization 01/05/2025 revealed multivessel CAD. Now s/p CABG x 5 (EILEEN to LAD, GSV to D2, GSV to OM1, RA to OM2, GSV to RPDA) 01/09/2025 w/ Dr. Hernandez
- Patient had 2 hours of A-fib evening of 01/11. No further A-fib noted on telemetry overnight. Continue p.o. amiodarone. If patient to have recurrence of A-fib would plan for anticoagulation
- hypotension improving. off midodrine. continue toprol 12.5mg daily. continue norvasc 2.5mg daily for radial graft
- Continue diuresis. CXR with evidence of small B/L pleural effusions
- continue asa, plavix given NSTEMI presentation. hgb 8.4
- Continue crestor 40mg daily. LDL 54.
- Continue post-op care, out of bed/ambulate as able
- d/w nursing
Progress Note - General Utility Machine Operator
Subjective
Date of Service: January 13, 2025
feels tired. less nausea
Objective
Labs:
01/13/25 04:21
01/13/25 04:21
Labs
Hgb 8.4 g/dL (13.0-18.0) L 01/13/25 04:21
Hct 24.1 % (39.0-52.0) L 01/13/25 04:21
Plt Count 143 10^3/uL (130-400) 01/13/25 04:21
PT 15.5 Sec (11.4-14.6) H 01/10/25 03:58
INR 1.20 01/10/25 03:58
APTT 31.7 Sec (23.4-35.0) 01/09/25 14:01
Sodium 136 mmol/L (135-145) 01/13/25 04:21
Potassium 4.3 mmol/L (3.5-5.1) 01/13/25 04:21
BUN 19 mg/dl (9-20) 01/13/25 04:21
Creatinine 0.9 mg/dL (0.7-1.3) 01/13/25 04:21
Glucose 105 mg/dl (70-99) H 01/13/25 04:21
Vital Signs and I&O:
Vital Signs
Temp Pulse Resp BP Pulse Ox
98.4 F 90 20 97/69 95
01/13/25 12:30 01/13/25 14:00 01/13/25 12:30 01/13/25 13:10 01/13/25 12:30
Vital Signs
Temp Pulse Resp BP Pulse Ox
98.4 F 90 95
01/13/25 12:30 01/13/25 14:00 01/13/25 12:30 01/13/25 13:10 01/13/25 12:30
Intake & Output
01/11/25 01/12/25 01/13/25 01/14/25
07:59 07:59 07:59 07:59
Intake Total 853.8 / 863.8 466.8 / 506.8 140 / 140
Output Total 1030 / 1030 2050 / 2650 2300 / 2300 1300 / 1300
Balance -176.2 / -166.2 -2030 / -2620 -1833.2 / -1793.2 -1160 / -1160
Physical Exam
Physical Exam
GEN: No distress, awake, alert, oriented x3
HEENT: supple, anicteric, mmm
LUNGS: Few crackles bilaterally, no wheezes
CV: Reg, S1/S2, no murmur
ABD: soft, BS+, NT/ND
EXT: No cyanosis, clubbing. 1+ edema of B/L LE
NEURO: Gross non-focal
SKIN: Warm, pink, dry. No rash. Sternotomy dressing c/d/i.
--- NOTE | 2025-01-13 16:22 | PTCARENOTE ---
Assessment unchanged; NSR on monitor and VSS: pt OOB to chair for dinner.
--- NOTE | 2025-01-13 20:00 | PTCARENOTE ---
Assumed care of patient at 1900. Patient found OOB in chair at time of assessment. Patient is AOx4, follows commands appropriately, moves all extremiteis. Lung sounds are diminished at the bases saO2 96% on RA. Heart sounds are audible, patient is
SR on the monitor, normal palpable L ulnar and R radial pulses. Dorsalis pedis pulses are palpable. There is trace BLE edema and trace generalized anasarca. Patient currently has TEDs on. Patient has active BS throughout all four quadrants, patient
reports several loose BMs yesterday, patient is voiding clear yellow in urinal. Patient has a sternal incision with aquacell dressing that is CDI, ABD dressing over CT wounds that is CDI, there is a L radial incision approx with surg adhesive HEADER SETUP OPERATOR, R
groin puncture approx with surg adhesive HEADER SETUP OPERATOR, and RLE incision approx with surg adhesive HEADER SETUP OPERATOR. Patient has R FA PIV available for intermittent infusion. No c/o pain. VSS. Call funk within reach.
[2025-01-13] MEDS: PACERONE 400 MG PO (21:24)
[2025-01-13] MEDS: MAGNESIUM OXIDE 500 MG PO (21:25)
[2025-01-13] MEDS: CORDARONE 103 MG IV (22:58)
--- NOTE | 2025-01-13 23:29 | PTCARENOTE ---
At 2231 patient converted into afib rhythm HR 100s-110. On assessment of patient, they reported no symptoms. saO2 assessed to be 87% placed on 2L via NC saO2 improved to 96% will maintain on oxygen for now. CT PA notified. Received orders for 1x
amio bolus. Patient remains in afib currently however HR now 80s-90s.
[2025-01-14] VITALS (9 sets, daily range): BP systolic 87–129; BP diastolic 61–84; BMI 28.8
[2025-01-14] MEDS: CORDARONE 103 MG IV ×2 (00:19→07:47)
--- NOTE | 2025-01-14 00:55 | PTCARENOTE ---
Patient still in Afib rhythm 80s-90s. Additional bolus of amio ordered and administered.
--- NOTE | 2025-01-14 01:53 | PTCARENOTE ---
An hour following second amio bolus patient remained in afib. Orders received to initiate amio gtt. Started new IV access on patient in L FA. While inserting IV patient broke out of Afib. Currently in SR HR 70s-80s. CT PA notified. Per PA will hold
off on gtt for now.
[2025-01-14 04:02] LABS: Ionized Calcium 1.08 mMOL/L (1.15-1.33)
--- NOTE | 2025-01-14 04:14 | W.PN.CT ---
Today's Communication / Plan
-
Plan:
-No major issues overnight. Hemodynamically and neurologically intact
-Had brief 2hrs a-fib with RVR on POD#2. Back in a-fib (120's) @ 2240 last night, converted to NSR @ 0130 after Amiodarone bolus x 2, no gtt
-Will discuss DOAC/NOAC and d/c of Plavix
-BP has been soft postop, has been on Midodrine prn. Improving
-On Norvasc 2.5 mg Daily for radial graft patency and was started on Toprol XL 12.5 mg Daily on 01/12/25
-Increased PO Amiodarone to 400 mg TID and got a dose last night
-Cont. diuresis as BP permits
-Replete electrolytes
-H/H stable @ 9.0/25.1
-Cont. current meds (ASA, Plavix, Crestor, Amio, Midodrine 5 tid prn, Toprol 12.5 qd, Norvasc for radial graft, Feosol, vit C, Reglan, Protonix)
-Encourage use of IS
-OOB into chair/Ambulate
-Home later today vs tomorrow
Assessment / Plan
-
Assessment:
-S/P Median sternotomy/ CABG x 5 (EILEEN to LAD, GSV to D2, GSV to OM1, RA to OM2, GSV to RPDA)/Endoscopic harvest/prep of RLE GSV/Endoscopic harvest/prep of L RA/ELAA (40mm AtriClip), by Dr. Hernandez, 01/09/25, pod#5
-Severe 3v CAD
-Hx CAD S/P PCI with SETH to mid circ, 09/2017
-NSTEMI (peak trop 4.31)
-[place]
-LVEF 50-55%, improved to 55-60% postop per intraop BRYSON
-Mild AI
-Mild MR
-Mild TR
-HTN
-HLD
-Left hand abscess/cellulitis S/p I&D
-Acute postop blood loss/Anemia (stable without PRBC's)
-Intraop coagulopathy/thrombocytopenia (transfused 1 {5pk} plts)
-Acute postop atelectasis
-Acute postop hypovolemia with subsequent hypervolemia
-Acute postop EKG changes c/w acute pericarditis, +rub on auscultation
-Acute postop paroxysmal a-fib on 01/11 - tx with Amio bolus and drip
-Acute postop hyponatremia
Discussed patient care with: Cardiology, Nursing, Respiratory Therapy, Pharmacy and Care Team
Subjective
Procedure
S/P Median sternotomy/ CABG x 5 (EILEEN to LAD, GSV to D2, GSV to OM1, RA to OM2, GSV to RPDA)/Endoscopic harvest/prep of RLE GSV/Endoscopic harvest/prep of L RA/ELAA (40mm AtriClip), by Dr. Hernandez, 01/09/25
-
Date of Service: January 14, 2025
Pt c/o mild incisional pain, otherwise feels well. Ambulating halls without difficulty
Objective Data
-
PT 15.5 Sec (11.4-14.6) H 01/10/25 03:58
INR 1.20 01/10/25 03:58
APTT 31.7 Sec (23.4-35.0) 01/09/25 14:01
Vital Signs
Vital Signs
Temp Pulse Resp BP Pulse Ox
98.9 F 79 20 114/75 96
01/14/25 03:00 01/14/25 04:00 01/14/25 03:00 01/14/25 03:48 01/14/25 04:00
CT Intake/Output/Weight
01/13/25 01/13/25 01/14/25
06:59 18:59 06:59
Intake Total 203.5 / 466.8 140 / 340 200 / 340
Output Total 300 / 2300 1300 / 2050 750 / 2050
Balance -96.5 / -1833.2 -1160 / -1710 -550 / -1710
SaO2: 94 (RA)
Physical Exam
-
General: Awake, Oriented and AOx3
Cardiovascular: Regular rate & rhythm, No Murmurs, No Rub and No Gallop
Respiratory: Decreased Breath Sounds (at bases, otherwise clear)
Sternum: Stable
Incision: Clean, Dry, Intact and Dressing Intact
Extremities: No Edema
Data Reviewed
-
Lab Results: Results Reviewed
Medications: Active Meds Reviewed
Chest X-Ray: Report Reviewed and Image Reviewed
ECG: Report Reviewed and Image Reviewed
[2025-01-14 04:40] LABS: Hematocrit 25.1 % (39.0-52.0); Mean Corp Hgb Conc. 35.9 g/dL (33.0-37.0); Mean Corpuscular Hgb 32.5 pg (27.0-31.0); Mean Corpuscular Volume 90.6 fL (80.0-94.0); Mean Platelet Volume 10.8 fL (7.4-10.4); Platelet Count 186 10^3/uL (130-400); Red Blood Cell Count 2.77 10^6/uL (4.70-6.10); Red Cell Dist. Width 13.3 % (11.5-14.5); White Blood Cell Count 10.7 10^3/uL (4.8-10.8)
[2025-01-14 04:51] LABS: Blood Urea Nitrogen 16 mg/dl (9-20); Calcium 8.2 mg/dl (8.4-10.2); Carbon Dioxide 30 mmol/L (22-30); Chloride 99 mmol/L (98-107); Estimated Creatinine Clearance 89 ml/min; Glucose 104 mg/dl (70-99); Magnesium 2.2 mg/dl (1.6-2.3); Potassium 4.1 mmol/L (3.5-5.1); Sodium 136 mmol/L (135-145); eGFR > 60.00
[2025-01-14] MEDS: CALCIUM GLUCONATE 130 MG IV (05:23)
[2025-01-14] MEDS: TYLENOL PO ×3 (07:28→20:52)
--- NOTE | 2025-01-14 08:00 | PTCARENOTE ---
Converted to NSR after Amio bolus, VSS
--- NOTE | 2025-01-14 08:00 | PTCARENOTE ---
Received pt in Afib 100-120. Upon entering room for walking rounds and to administer Amio bolus, pt grumpily states 'Im not taking any oral meds today because you are destroying my kidneys'. RN asked pt why he stated this and he responded that we
broke his kidneys and now he has kidney pain this am. Pt however refusing to allow RN to assess his back. Pt reassured that his kidney function labs were in fact wnl. Pt continues to state he will not take any oral medications. Discussed with CT
OPERATIONS LIEUTENANT, whom then spoke with PT. Pt agreeable after to taking his cardiac medications. Amio bolus administered via his #22 In his RT FA , blood return confirmed prior to starting infusion. Pt currently laying in bed, refusing to take part in his care
this am and is attempting to sleep.
[2025-01-14] MEDS: LIDOCAINE 4% PATCH TOPICAL (08:06)
[2025-01-14] MEDS: CRESTOR PO (08:06)
[2025-01-14] MEDS: REGLAN PO (08:06)
[2025-01-14] MEDS: LOW STRENGTH ASPIRIN PO (08:06)
[2025-01-14] MEDS: FEOSOL PO (08:06)
[2025-01-14] MEDS: VITAMIN C PO (08:07)
[2025-01-14] MEDS: NSS IV (08:07)
[2025-01-14] MEDS: MAGNESIUM OXIDE PO (08:07)
[2025-01-14] MEDS: SENOKOT-S PO ×2 (08:07→20:52)
[2025-01-14] MEDS: PROTONIX PO (08:07)
[2025-01-14] MEDS: NEURONTIN PO ×3 (08:07→20:52)
[2025-01-14] MEDS: NORVASC 2.5 MG PO (08:35)
[2025-01-14] MEDS: ELIQUIS 5 MG PO ×2 (08:35→20:51)
[2025-01-14] MEDS: PACERONE 400 MG PO ×2 (08:35→20:52)
[2025-01-14] MEDS: TOPROL XL 12.5 MG PO ×2 (08:35→16:04)
--- NOTE | 2025-01-14 11:22 | PTCARENOTE ---
Ambulated 200 feet with RN. Some [place] noted, but resolved once resting. VSS
[2025-01-14] MEDS: LASIX PO (13:28)
[2025-01-14] MEDS: PACERONE PO (16:01)
--- NOTE | 2025-01-14 17:01 | PTCARENOTE ---
Ambulated in hallway with RN for approx 250 feet, with rolling walker. Tolerated w/o issue. Assisted to chair after. VSS. Assessment otherwise unchanged from prior.
--- NOTE | 2025-01-14 17:06 | PTCARENOTE ---
More engaged with RN this afternoon. Ambulated again with nurse at patient request. VSS. States 'kidneys feel a little better', Requesting meds to help him sleep tonight. Discussed with CT TEACHING MANAGER. Order obtained. Pt willing to take additional BB
after talking with TEACHING MANAGER. VSS. Assessment otherwise unchanged from prior.
--- NOTE | 2025-01-14 21:00 | PTCARENOTE ---
Patient received resting in bed watching television and using his laptop computer. Patient A+A+Ox3. No neurological deficits noted. No c/o pain or discomfort. Room air. SpO2 90%. 2L O2 HS. No adventitious breath sounds noted. Patient
ambulated to bathroom with minimal assistance - Mild [place] noted. Sinus Rhythm. Heart rate 80's. No c/o chest pain, pressure or discomfort. Normoactive bowel sounds. No BM. No c/o nausea. No vomiting. Voiding without difficulty. Patient with
no c/o back or flank pain. Sternal dressing intact. s/p chest tubes - Four chest tubes sutures intact - Open to air. Right groin puncture site intact. Right leg incision intact - Surgical adhesive - Open to air. Bilateral lower extremity edema.
Left arm radial graft site - Incisions intact - Surgical adhesive - Open to air - Edema - Positive Ulnar pulse - Positive circulation, sensation and mobility to left upper extremity. Assessment as documented.
[2025-01-14] MEDS: MELATONIN 5 MG PO (23:31)
--- NOTE | 2025-01-15 00:30 | PTCARENOTE ---
Patient assisted to bathroom. Back to bed. Melatonin 5mg PO given per patient request. Patient given CHG bath and linens changed. Patient now sleeping without difficulty. Assessment as documented.
--- NOTE | 2025-01-15 04:50 | W.PN.CT ---
Today's Communication / Plan
-
Plan:
-No major issues overnight. Hemodynamically and neurologically intact
-Had brief 2hrs a-fib with RVR on POD#2, brief 3hrs on POD#4 into POD#5 and another 3hrs on POD#3. No further a-fib overnight
-Started on Eliquis yesterday 01/14, Plavix has been d/c'd
-Postop soft BP has improved, tolerating BB and Norvasc, as well as Lasix
-On Norvasc 2.5 mg Daily for radial graft patency
-Increased PO Amiodarone to 400 mg TID
-Cont. diuresis as BP permits
-Replete electrolytes
-Cont. current meds (ASA, Plavix, Crestor, Amio, Midodrine 5 tid prn, Toprol 12.5 qd, Norvasc for radial graft, Feosol, vit C, Reglan, Protonix)
-Encourage use of IS
-OOB into chair/Ambulate
-Home today
Assessment / Plan
-
Assessment:
-S/P Median sternotomy/ CABG x 5 (EILEEN to LAD, GSV to D2, GSV to OM1, RA to OM2, GSV to RPDA)/Endoscopic harvest/prep of RLE GSV/Endoscopic harvest/prep of L RA/ELAA (40mm AtriClip), by Dr. Hernandez, 01/09/25, pod#6
-Severe 3v CAD
-Hx CAD S/P PCI with SETH to mid circ, 09/2017
-NSTEMI (peak trop 4.31)
-[place]
-LVEF 50-55%, improved to 55-60% postop per intraop BRYSON
-Mild AI
-Mild MR
-Mild TR
-HTN
-HLD
-Left hand abscess/cellulitis S/p I&D
-Acute postop blood loss/Anemia (stable without PRBC's)
-Intraop coagulopathy/thrombocytopenia (transfused 1 {5pk} plts)
-Acute postop atelectasis
-Acute postop hypovolemia with subsequent hypervolemia
-Acute postop EKG changes c/w acute pericarditis, +rub on auscultation
-Acute postop paroxysmal a-fib on 01/11 - tx with Amio bolus and drip
-Acute postop hyponatremia
Discussed patient care with: Cardiology, Nursing, Respiratory Therapy, Pharmacy and Care Team
Subjective
Procedure
S/P Median sternotomy/ CABG x 5 (EILEEN to LAD, GSV to D2, GSV to OM1, RA to OM2, GSV to RPDA)/Endoscopic harvest/prep of RLE GSV/Endoscopic harvest/prep of L RA/ELAA (40mm AtriClip), by Dr. Hernandez, 01/09/25
-
Date of Service: January 15, 2025
Pt c/o mild incisional pain, otherwise feels well
Objective Data
-
PT 15.5 Sec (11.4-14.6) H 01/10/25 03:58
INR 1.20 01/10/25 03:58
APTT 31.7 Sec (23.4-35.0) 01/09/25 14:01
Vital Signs
Vital Signs
Temp Pulse Resp BP Pulse Ox
98.0 F 76 16 129/82 97
01/14/25 20:20 01/15/25 03:00 01/14/25 23:35 01/14/25 23:35 01/15/25 03:00
CT Intake/Output/Weight
01/14/25 01/14/25 01/15/25
06:59 18:59 06:59
Intake Total 200 / 340 580 / 820 240 / 820
Output Total 750 / 2050 500 / 700 200 / 700
Balance -550 / -1710 80 / 120 40 / 120
SaO2: 94 (RA)
Physical Exam
-
General: Awake, Oriented and AOx3
Cardiovascular: Regular rate & rhythm, No Murmurs and No Gallop
Respiratory: Decreased Breath Sounds
Sternum: Stable
Incision: Clean, Dry, Intact and Dressing Intact
Extremities: Other (+trace edema)
Data Reviewed
-
Lab Results: Results Reviewed
Medications: Active Meds Reviewed
Chest X-Ray: Report Reviewed and Image Reviewed
ECG: Report Reviewed and Image Reviewed
[2025-01-15 05:30] VITALS: BP 103/71
[2025-01-15 05:31] VITALS: BP 103/71
[2025-01-15 06:00] VITALS: BMI 29.3
[2025-01-15] MEDS: TYLENOL PO (06:00)
[2025-01-15 06:15] LABS: Hematocrit 25.4 % (39.0-52.0); Mean Corp Hgb Conc. 35.4 g/dL (33.0-37.0); Mean Corpuscular Volume 90.4 fL (80.0-94.0); Mean Platelet Volume 10.6 fL (7.4-10.4); Platelet Count 229 10^3/uL (130-400); Red Blood Cell Count 2.81 10^6/uL (4.70-6.10); Red Cell Dist. Width 13.5 % (11.5-14.5); White Blood Cell Count 10.9 10^3/uL (4.8-10.8)
--- NOTE | 2025-01-15 06:15 | PTCARENOTE ---
Patient A+A+Ox3. No neurological deficits noted. No c/o pain or discomfort. AM lab work collected and sent. OOB to bathroom. Voiding without difficulty. Standing scale weight 90.0 kg. Ambulating without difficulty. No c/o headache, dizziness
or lightheadedness. Patient now resting in chair watching television. Assessment/Interventions as documented.
[2025-01-15 06:39] LABS: Blood Urea Nitrogen 13 mg/dl (9-20); Calcium 8.4 mg/dl (8.4-10.2); Carbon Dioxide 28 mmol/L (22-30); Chloride 101 mmol/L (98-107); Estimated Creatinine Clearance 86 ml/min; Glucose 103 mg/dl (70-99); Magnesium 2.1 mg/dl (1.6-2.3); Potassium 4.2 mmol/L (3.5-5.1); Sodium 138 mmol/L (135-145); eGFR > 60.00
--- NOTE | 2025-01-15 08:20 | W.DCSUMMARY ---
Discharge Summary
Discharge Data
Date of Admission: 01/04/25
Date of Discharge: 01/15/25
Total time spent discharging patient (in min): 45
-
Pending Results: No
Hospital Course
Primary care physician:
Dr. Kyle Rodriguez
Outpatient electronic game developer:
Dr. AISHWARYA Davey
Inpatient consultants:
DCA, Assistant Manager Of Operations, anesthesia, cardiac rehab
Procedures:
1. Median sternotomy/ CABG x 5 (EILEEN to LAD, GSV to D2, GSV to OM1, RA to OM2, GSV to RPDA)/Endoscopic harvest/prep of RLE GSV/Endoscopic harvest/prep of L RA/ELAA (40mm AtriClip), by Dr. Hernandez, 01/09/25
Primary Diagnosis:
1. Multivessel coronary artery disease
Secondary Diagnoses:
1. NSTEMI
2. Acute postop atelectasis
3. Acute postop paroxysmal atrial fibrillation
4. Acute postop hyponatremia secondary to fluid retention
5. Hypertension
6. Hyperlipidemia
HPI: 69-year-old male with known coronary artery disease presented to [facility] after experiencing upper chest tightness. He was found to have elevated troponins and underwent a left heart cath on 01/05 and was found to have multivessel
disease And was worked up for CT surgery.
Hospital course
Patient was admitted on 01/04 with 10 days of intermittent chest pain. While in the emergency room patient was ruled in for an NSTEMI started on a heparin drip and taken for a left heart cath on 01/05. With the left heart cath patient was found to
have multivessel disease and CT surgery began our preoperative workup. Patient was eventually taken to the OR on 01/[address] Hernandez. Postoperatively he returned to the CVICU on Levophed and Cardene for his radial graft. Patient did well and was
extubated by 1700. On 01/10 postoperative day 1 Levophed was weaned off and in the morning Honeycutt catheter was removed. Beta-blockers were held in the a.m. due to low blood pressures and patient was started on midodrine. On 01/11 postoperative day 2
patient remained mildly hypotensive and was given albumin overnight. Midodrine was increased to 10 mg 3 times daily and chest tubes were removed. Patient was diuresed with 40 mg of IV Lasix. Patient was having frequent PACs and was given an
amiodarone bolus along with resuming his Lopressor. On 01/12 postoperative day 3 patient was diuresed with 40 mg of IV Lasix twice daily and due to an episode of atrial fibrillation he was started on an amiodarone drip. Blood pressures continue to
improve and his midodrine was decreased to 5 mg 3 times daily. On 01/13 postoperative day 4 patient was again diuresed with 40 mg of IV Lasix and midodrine was now made as needed due to improving blood pressures. On 01/14 postoperative day 5 patient
had reoccurring episodes of atrial fibrillation. He was giving an amiodarone bolus along with increased p.o. doses of amiodarone. Patient converted after several hours and he was started on Eliquis and Plavix was discontinued. Patient's blood
pressure continued to improve without midodrine and beta-blockers were increased. Patient overall was improving clinically however he complained of back pain and refused several morning medications because he felt that the medications were causing
kidney pain. Patient was educated on how the back pain was likely related to surgery, however, medications were adjusted. On 01/15 postoperative day 6, patient tolerated his increased dose of metoprolol. He was educated about how he needed to
follow his discharge medications and he expressed understanding. Patient was deemed stable for discharge home.
Home medication changes:
see below
Discharge Plan
-
Patient Disposition: Home (Routine Discharge)
Discharge Diagnosis/Procedures: CABG x 5, left atrial appendage clip
Condition: Good
Diet: Low Cholesterol and Low Sodium
Activity: No strenuous activity
Driving Restrictions: Not until seen by your Dr
Bathing Restrictions: OK to Shower
Blood Work: BMP/Mg in one week
Other Services: Cardiac Rehab
Specialty Instructions: Weigh Daily- Call MD for wt gain/loss 3 lbs overnight/5 lbs in 1 week
Activity Restrictions/Additional Instructions:
Please call either [facility] (P: [phone]) or [facility] (P: [phone]) to get scheduled.
ACTIVITY:
-No strenuous activity: no heavy lifting, pushing, pulling anything over 15 pounds for one month
-continue to use stairs as tolerated
DRIVING RESTRICTIONS:
-No driving for one month or until approved by your surgeon
WOUND CARE:
-Shower daily. Use soap & water.
-No lotions, creams or powders on incision area.
DIET:
-continue a low fat/low cholesterol diet.
-IF you are diabetic, continue carb controlled diet.
CARDIAC REHAB:
-Please make appointment to start in 5-6 weeks with your local hospital program. (See Cardiac Rehabilitation Discharge Booklet).
SPECIALTY INSTRUCTIONS:
-Weigh yourself daily. Call your physician for any weight gain/loss of 3 lbs overnight or 5 lbs in one week.
-REPORT any clicking noise or uneven appearance of your sternum to your surgeon immediately.
-If you smoke, you are instructed to quit. The [place] smoking hotline phone number is [phone]
Referrals:
CT Transitional Care Nurse [Outside]
(
The Cardiothoracic Transitional Care Nurse will call you to set up a visit in 1-2 days.)
[facility]. Cardiac Rehab [Outside] - 02/14/25 1:00 pm
(Cardiac Rehab Orientation appointment is on 02/14 at 1 PM
The Cardiac Rehab gym is located on the first floor of the [facility].)
Kyle Rodriguez DO [Family Provider] -
Meaghan Navarro PA-C [Specified Professional Personl] - 02/13/25 9:00 am
Abelardo Hernandez MD [Active] - 02/07/25 3:00 pm
Additional Discharge Medication Instructions: Please take amiodarone 200mg twice a day for 14 days and then 200mg daily
Take your Lasix and potassium for 7 days; you will get lab work after one week. Please weigh yourself daily
You will be on amlodipine for 1 year after year surgery to protect your radial artery graft.
Prescriptions:
New
acetaminophen 325 mg Tablet
650 mg PO Q4HPRN PRN (Reason: mild pain,headache,temp >101F ) Qty: 0 0RF
Eliquis 5 mg Tablet
5 mg PO BID Qty: 60 1RF
amiodarone 200 mg Tablet
200 mg PO BID Qty: 90 0RF
Rx Instructions:
please take 200mgtwice a day for 14 days and then 200mg daily after
furosemide 40 mg Tablet
40 mg PO DAILY Qty: 7 0RF
amlodipine 2.5 mg Tablet
2.5 mg PO DAILY Qty: 90 3RF
metoprolol succinate 25 mg Tablet Extended Release 24 Hr
25 mg PO DAILY Qty: 60 1RF
oxycodone 5 mg Tablet
2.5 mg PO Q4HPRN PRN (Reason: severe pain) Qty: 7 0RF
potassium chloride 10 mEq tablet extended release
10 meq PO DAILY Qty: 7 0RF
Continued
rosuvastatin [Crestor] 40 mg Tablet
40 mg PO DAILY
therapeutic multivitamin Tablet
1 tab PO DAILY
aspirin 81 mg Tablet,Delayed Release (Dr/Ec)
81 mg PO DAILY
Discontinued
saw palmetto 160 mg Capsule
160 mg PO DAILY
losartan 25 mg Tablet
25 mg PO DAILY
Discharge Orders:
Discharge Patient (As Directed); Ordered 01/15/25
Ordered By: Leyda Micalea
Care Plan Goals
Care Plan Goals:
Problem: Readiness for enhanced knowledge related to diagnosis and treatment plan
Goal: Understand your diagnosis and treatment plan needs, including medications if applicable.
Instructions: Know your diagnosis, underlying causes and treatment plan options, including medications if applicable. Consult with your health care team to learn about your diagnosis and treatment plan, including medications if applicable.
Discharge Date and Time
Print Language: SLOVAK
[2025-01-15 08:22] VITALS: BP 111/64
[2025-01-15] MEDS: CRESTOR 40 MG PO (08:33)
[2025-01-15] MEDS: PROTONIX 40 MG PO (08:33)
[2025-01-15] MEDS: NEURONTIN 100 MG PO (08:33)
[2025-01-15] MEDS: ELIQUIS 5 MG PO (08:33)
[2025-01-15] MEDS: TOPROL XL 25 MG PO (08:33)
[2025-01-15] MEDS: NORVASC 2.5 MG PO (08:33)
[2025-01-15] MEDS: LASIX 40 MG PO (08:33)
[2025-01-15] MEDS: SENOKOT-S 1 TABLET PO (08:33)
[2025-01-15] MEDS: PACERONE 400 MG PO (08:33)
[2025-01-15] MEDS: LOW STRENGTH ASPIRIN 81 MG PO (08:33)
[2025-01-15] MEDS: LIDOCAINE 4% PATCH TOPICAL (08:34)
--- NOTE | 2025-01-15 08:48 | PTCARENOTE ---
assumed care of pt from previous shift RN, sinus rhythm on tele, VSS. + peripheral pulses, trace edema to bilateral lower extremities. Lungs diminished, pox 93-94% on RA. +bs, tolerating PO intake, voids spontaneously. PIV flushes easily. Post op
dressings removed. Pt assisted into shower.
--- NOTE | 2025-01-15 10:45 | PTCARENOTE ---
IV line and tele monitor removed, pt tolerated shower. Discharge instructions, medication list and follow up appointments reviewed w the pt and his . Questions encouraged.
== END 2025-01-15 10:47 | disposition home or self-care (01) | DRG 234 ==
LOC: CVICU 15:19
PROVIDERS: Anesthesiology; Emergency Medicine; Internal Medicine Cardiovascular Disease; Internal Medicine Interventional Cardiology; Nurse Practitioner; Nurse Practitioner Adult Health; Physician Assistant; Physician Assistant Medical; ADMITTING PHYSICIAN Thoracic Surgery (Cardiothoracic Vascular Surgery); EMERGENCY PHYSICIAN Emergency Medicine; FAMILY PHYSICIAN Family Medicine; OTHER PHYSICIAN Internal Medicine
PROC: B2111ZZ Fluoroscopy of Multiple Coronary Arteries using Low Osmolar Contrast (ICD-10-PCS; 2025-01-05)
PROC: 4A033BC Measurement of Arterial Pressure, Coronary, Percutaneous Approach (ICD-10-PCS; 2025-01-05)
PROC: 4A023N7 Measurement of Cardiac Sampling and Pressure, Left Heart, Percutaneous Approach (ICD-10-PCS; 2025-01-05)
PROC: B2151ZZ Fluoroscopy of Left Heart using Low Osmolar Contrast (ICD-10-PCS; 2025-01-05)
PROC: 06BP4ZZ Excision of Right Saphenous Vein, Percutaneous Endoscopic Approach (ICD-10-PCS; 2025-01-09)
PROC: 30233R1 Transfusion of Nonautologous Platelets into Peripheral Vein, Percutaneous Approach (ICD-10-PCS; 2025-01-09)
PROC: 02100ZC Bypass Coronary Artery, One Artery from Thoracic Artery, Open Approach (ICD-10-PCS; 2025-01-09)
PROC: 02L70CK Occlusion of Left Atrial Appendage with Extraluminal Device, Open Approach (ICD-10-PCS; 2025-01-09)
PROC: 02100AW Bypass Coronary Artery, One Artery from Aorta with Autologous Arterial Tissue, Open Approach (ICD-10-PCS; 2025-01-09)
PROC: 03BC4ZZ Excision of Left Radial Artery, Percutaneous Endoscopic Approach (ICD-10-PCS; 2025-01-09)
PROC: B24BZZ4 Ultrasonography of Heart with Aorta, Transesophageal (ICD-10-PCS; 2025-01-09)
PROC: 5A1221Z Performance of Cardiac Output, Continuous (ICD-10-PCS; 2025-01-09)
PROC: 021209W Bypass Coronary Artery, Three Arteries from Aorta with Autologous Venous Tissue, Open Approach (ICD-10-PCS; 2025-01-09)
DX: I21.4 Non-ST elevation (NSTEMI) myocardial infarction (principal); D62 Acute posthemorrhagic anemia; E87.1 Hypo-osmolality and hyponatremia; J98.11 Atelectasis; D68.8 Other specified coagulation defects; I30.8 Other forms of acute pericarditis; I48.0 Paroxysmal atrial fibrillation; I25.10 Atherosclerotic heart disease of native coronary artery without angina pectoris; E78.00 Pure hypercholesterolemia, unspecified; I10 Essential (primary) hypertension; D69.59 Other secondary thrombocytopenia; E87.70 Fluid overload, unspecified; E86.1 Hypovolemia; I95.9 Hypotension, unspecified; I08.3 Combined rheumatic disorders of mitral, aortic and tricuspid valves; M54.9 Dorsalgia, unspecified; Z79.82 Long term (current) use of aspirin; Z79.899 Other long term (current) drug therapy; Z95.5 Presence of coronary angioplasty implant and graft
CPT/HCPCS: 71045; 71046; 71250; 74018; 80048; 80053; 80061; 81003; 81015; 82330; 82565; 82805; 82947; 82962; 83036; 83735; 84132; 84302; 84484; 84520; 85014; 85018; 85025; 85027; 85049; 85347; 85610; 85730; 86850; 86900; 86901; 86920; 93005; 93306; 93312; 93320; 93325; 93458; 93799; 93880; 93923; 93930; 94002; 96365; 96366; 99152; 99153; 99285; C1769; C1894; P9047; P9073; Q9967

== ENCOUNTER 2025-03-02 10:36 | Outpatient (RCR) | payer OTHER, SELFPAY | END 2025-03-02 23:59 | disposition home or self-care (01) | LOC: CRHB 10:36 | PROVIDERS: ATTENDING PHYSICIAN Internal Medicine Cardiovascular Disease | DX: I25.10 Atherosclerotic heart disease of native coronary artery without angina pectoris (principal); I21.4 Non-ST elevation (NSTEMI) myocardial infarction (principal); I25.2 Old myocardial infarction; Z95.1 Presence of aortocoronary bypass graft; Z95.5 Presence of coronary angioplasty implant and graft; I48.0 Paroxysmal atrial fibrillation; R03.0 Elevated blood-pressure reading, without diagnosis of hypertension; E78.1 Pure hyperglyceridemia; R01.1 Cardiac murmur, unspecified | CPT/HCPCS: 93797; 93798 ==

== ENCOUNTER 2025-04-06 10:45 | Outpatient (RCR) | payer OTHER, SELFPAY | END 2025-04-06 23:59 | disposition home or self-care (01) | LOC: CRHB 10:45 | PROVIDERS: ATTENDING PHYSICIAN Internal Medicine Cardiovascular Disease; FAMILY PHYSICIAN Family Medicine | DX: I25.2 Old myocardial infarction (principal); Z95.1 Presence of aortocoronary bypass graft | CPT/HCPCS: 93797; 93798 ==

== ENCOUNTER 2025-04-20 09:40 | Outpatient (RCR) | payer OTHER, SELFPAY | END 2025-04-21 13:31 | disposition home or self-care (01) | LOC: CRHB 09:40 | PROVIDERS: ATTENDING PHYSICIAN Internal Medicine Cardiovascular Disease; FAMILY PHYSICIAN Family Medicine | DX: I25.10 Atherosclerotic heart disease of native coronary artery without angina pectoris (principal); Z95.1 Presence of aortocoronary bypass graft; I25.2 Old myocardial infarction; E78.5 Hyperlipidemia, unspecified; Z95.5 Presence of coronary angioplasty implant and graft | CPT/HCPCS: 93797; 93798; G0422; G0423 ==